=== PATIENT | female | born 1945 | race Caucasian/White ===

== ENCOUNTER 2019-01-01 15:38 | Emergency (ER) | payer MEDICARE, MEDICAID, SELFPAY ==
[2019-01-01 15:40] VITALS: BP 216/115; PULSE 64; RESP 18; TEMP 36.7; O2SAT 97; BMI 24.0
[2019-01-01 15:51] VITALS: BP 213/109; PULSE 59; RESP 20; O2SAT 99
[2019-01-01] MEDS: Lisinopril 20 MG Tablet PO (16:42)
[2019-01-01 16:43] VITALS: BP 181/87; PULSE 72
--- NOTE | 2019-01-01 16:55 | EKG12_ITS ---
Test Reason : HIGH BLOOD PRESSURE Blood Pressure : / mmHG Vent. Rate : 060 BPM Atrial Rate : 060 BPM P-R Int : 142 ms QRS Dur : 076 ms QT Int : 446 ms P-R-T Axes : 007 -10 018 degrees QTc Int : 446 ms Normal sinus rhythm with sinus arrhythmia Normal ECG Confirmed by SONIA MCELROY MD ([id number]), non linear editor CHRIST SUN ([id number]) on 01/04/2019 9:30:24 AM Referred By: HEIDI
--- NOTE | 2019-01-01 17:09 | ED.DCSUM_ITS ---
- ER Visit Summary Date of Service: 01/01/19 Chief Complaint: [] History of Present Illness: The patient is a 73 F [] Physical Examination: [] Test Results: [] Emergency Department Course and Treatment: [] Treatment Plan: [] Disposition: [] Impression: [] This note was generated with [employer] dictation software. It may contain incorrect words, spelling, and punctuation that were not noted in review of the chart prior to signing ED Disposition - Plan for ED Patient: Referrals: Care Physician,No Primary [Primary Care Provider] -
[2019-01-01 17:12] VITALS: BP 172/82; PULSE 57
--- NOTE | 2019-01-01 17:14 | ED.DEP ---
ED Disposition - Plan for ED Patient: Disposition: Home or Assisted Living Instructions: ED HTN Established Prescriptions: Lisinopril [Zestril] 20 mg PO DAILY #30 tab Referrals: Cornel Alston MD [STAFF PHYSICIAN] - As soon as possible Additional Instructions: Start taking the new blood pressure medication lisinopril 20 mg once a day. This may or may not need to be adjusted. Call and follow-up with Dr. Cornel Alston call their office on Thursday and see if they get you in this week. Check your blood sugars at home.
--- NOTE | 2019-01-01 17:15 | ED.VISSUMM ---
- ER Visit Summary Date of Service: 01/01/19 Chief Complaint: Elevated blood pressure History of Present Illness: The patient is a 73 F who comes in from [facility] health assessment for elevated blood pressure. Patient was not seen by her family physician in 8 years but prior to that she was on 2 different medicines for blood pressure. This was a routine evaluation. Patient denies any symptoms at this time. She has not had any chest pain shortness of breath, lightheadedness or dizziness, headache, nausea or vomiting, difficulty with speech or ambulation, visual changes, numbness tingling or weakness. Physical Examination: Well-nourished well-developed. Patient is in no acute distress. PERRLA, EOMI. No nystagmus. Heart is regular rate and rhythm. Lungs are clear to auscultation bilaterally. Abdomen is tender with normal bowel signs. Neurological exam is nonfocal. No lower extremity edema. No rash noted Test Results: EKG was normal sinus rhythm without any ST segment or T wave changes with normal intervals no ectopy. Emergency Department Course and Treatment: Patient given 20 mg of lisinopril. Blood pressure improved to 172/82. Patient remains asymptomatic. The rest of her vital signs are stable. She will be started on lisinopril and she will follow-up with her family doctor. Treatment Plan: Lisinopril prescription provided Disposition: Discharged home Impression: Uncontrolled hypertension This note was generated with [employer] dictation software. It may contain incorrect words, spelling, and punctuation that were not noted in review of the chart prior to signing ED Disposition - Plan for ED Patient: Referrals: Care Physician,No Primary [Primary Care Provider] -
--- NOTE | 2019-01-01 17:18 | ED.DCSUM_ITS ---
- ER Visit Summary Date of Service: 01/01/19 Chief Complaint: Elevated blood pressure History of Present Illness: The patient is a 73 F who comes in from [facility] health assessment for elevated blood pressure. Patient was not seen by her family physician in 8 years but prior to that she was on 2 different medicines for blood pressure. This was a routine evaluation. Patient denies any symptoms at this time. She has not had any chest pain shortness of breath, lightheadedness or dizziness, headache, nausea or vomiting, difficulty with speech or ambulation, visual changes, numbness tingling or weakness. Physical Examination: Well-nourished well-developed. Patient is in no acute distress. PERRLA, EOMI. No nystagmus. Heart is regular rate and rhythm. Lungs are clear to auscultation bilaterally. Abdomen is tender with normal bowel signs. Neurological exam is nonfocal. No lower extremity edema. No rash noted Test Results: EKG was normal sinus rhythm without any ST segment or T wave changes with normal intervals no ectopy. Emergency Department Course and Treatment: Patient given 20 mg of lisinopril. Blood pressure improved to 172/82. Patient remains asymptomatic. The rest of her vital signs are stable. She will be started on lisinopril and she will follow-up with her family doctor. Treatment Plan: Lisinopril prescription provided Disposition: Discharged home Impression: Uncontrolled hypertension This note was generated with [employer] dictation software. It may contain incorrect words, spelling, and punctuation that were not noted in review of the chart prior to signing ED Disposition - Plan for ED Patient: Referrals: Care Physician,No Primary [Primary Care Provider] -
== END 2019-01-01 17:22 | disposition home or self-care (01) ==
PROVIDERS: Emergency Provider Physician Assistant Medical
DX: I10 Essential (primary) hypertension (principal)
CPT/HCPCS: 93005; 99283

== ENCOUNTER → 2019-04-20 10:30 | Outpatient (CLI) | payer MEDICARE, MEDICAID, SELFPAY ==
[2019-04-20 13:22] LABS: Anion Gap 9 (5-15); BUN 38 mg/dL (7-18); BUN/Creat Ratio 24.7 RATIO (10-20); Calcium,Total 9.4 mg/dL (8.5-10.1); Chloride 106 mmol/L (98-107); Creatinine, Serum 1.54 mg/dL (0.55-1.02); EST Glomerular Filtration Rate 35 mL/min (>60); Est Glom Filt Rate - Afr Amer 42 mL/min (>60); Glucose 106 mg/dL (74-106); Potassium 4.3 mmol/L (3.5-5.1); Sodium Level 139 mmol/L (136-145)
== END ==
PROVIDERS: PCP Family Medicine; Visit Provider Nurse Practitioner Family
DX: I10 Essential (primary) hypertension (principal)
CPT/HCPCS: 36415; 80048

== ENCOUNTER → 2019-05-09 08:15 | Outpatient (CLI) | payer MEDICARE, MEDICAID, SELFPAY ==
[2019-05-09 10:29] LABS: Vitamin D,25 Hydroxy 14.7 ng/mL (29.95-100.01)
[2019-05-09 10:41] LABS: Anion Gap 9 (5-15); BUN 15 mg/dL (7-18); BUN/Creat Ratio 13.5 RATIO (10-20); Chloride 104 mmol/L (98-107); Cholesterol 227 mg/dL (200); Creatinine, Serum 1.11 mg/dL (0.55-1.02); EST Glomerular Filtration Rate 51 mL/min (>60); Est Glom Filt Rate - Afr Amer 62 mL/min (>60); Glucose 127 mg/dL (74-106); High Density Lipoprotein 65 mg/dL; Potassium 3.7 mmol/L (3.5-5.1); Sodium Level 138 mmol/L (136-145); Triglycerides 134 mg/dL; Very Low Density Lipoprotein 27 mg/dL (5-40)
== END ==
PROVIDERS: Family Provider Family Medicine; PCP Family Medicine; Referring Provider Family Medicine; Visit Provider Family Medicine
DX: I10 Essential (primary) hypertension (principal); N28.9 Disorder of kidney and ureter, unspecified
CPT/HCPCS: 36415; 80048; 80061; 82043; 82306; 82570

== ENCOUNTER → 2019-05-10 14:51 | Outpatient (CLI) | payer MEDICARE, MEDICAID, SELFPAY ==
[2019-05-10 18:59] LABS: Microalbumin,Random Urine 15.4 mg/L (NO RANGE EST.); Microalbumin:Creatinine Ratio 20.3 mg/g CRE (<30 mg/g CRE)
== END ==
PROVIDERS: Family Provider Family Medicine; PCP Family Medicine; Referring Provider Family Medicine; Visit Provider Family Medicine
DX: N28.9 Disorder of kidney and ureter, unspecified (principal)
CPT/HCPCS: 82043; 82570

== ENCOUNTER → 2019-05-30 07:45 | Outpatient (CLI) | payer MEDICARE, MEDICAID, SELFPAY ==
--- NOTE | 2019-05-30 07:49 | ECHOD_ITS ---
Reason For Study: MURMUR Procedure This was a 2D Doppler, Color Flow transthoracic echocardiogram. Exam performed in department. Left Ventricle Normal LV size. Left ventricular systolic function is normal. The estimated ejection fraction is 60 %. No regional wall motion abnormalities noted. Right Ventricle Normal RV size. Normal systolic function. Atria Normal left atrium. Normal right atrium. Mitral Valve Normal mitral valve. Mild (1+) eccentric mitral valve insufficiency. Tricuspid Valve Normal tricuspid valve. Mild (1+) tricuspid valve insufficiency. Pulmonary artery systolic pressure is 32 mmHg. Aortic Valve Normal aortic valve. Mild focal aortic valve calcification. Peak aortic valve gradient 13 mmHg. Mean aortic valve gradient 6 mmHg. Mild aortic stenosis. Pulmonic Valve Normal pulmonic valve. Great Vessels Normal aortic root. The pulmonary artery is normal size. Normal inferior vena cava. Pericardium/Pleural No pericardial effusion. MMode/2D Measurements & Calculations LVIDd: 3.6 cm IVSd: 0.94 cm LVOT diam: 2.0 cm LVIDs: 2.3 cm LVPWd: 0.82 cm LVOT area: 3.1 cm2 RVDd: 2.7 cm FS: 35.2 % Ao root diam: 3.1 cm LAV(MOD-bp): 52.1 ml LA A4 area: 17.8 cm2 LAV(MOD-bp) Indexed: 34.7 ml/m2 LAV(MOD-sp2): 52.4 ml LAV(MOD-sp4): 50.4 ml LA dimension(2D): 4.1 cm RA A4 area: 11.2 cm2 Time Measurements MV dec time: 0.22 sec Doppler Measurements & Calculations MV E max miguel a: 75.8 cm/sec Lat Peak E' Miguel A: 9.3 cm/sec Med Peak E' Miguel A: 6.8 cm/sec MV A max miguel a: 100.0 cm/sec E/E' lat: 8.2 E/E' med: 11.2 MV E/A: 0.76 Ao V2 max: 183.2 cm/sec LV V1 max: 109.4 cm/sec SV(LVOT): 82.2 ml Ao max P.4 mmHg LV V1 max P.8 mmHg Ao V2 mean: 119.8 cm/sec LV V1 mean P.0 mmHg Ao mean P.5 mmHg LV V1 mean: 83.1 cm/sec Ao V2 VTI: 37.7 cm LV V1 VTI: 26.9 cm KARI(I,D): 2.2 cm2 KARI(V,D): 1.8 cm2 PA V2 max: 104.0 cm/sec TR max miguel a: 258.9 cm/sec TR max P.8 mmHg Interpretation Summary Normal LV size. Left ventricular systolic function is normal. The estimated ejection fraction is 60 %. Mild (1+) tricuspid valve insufficiency. Mild aortic stenosis. Pulmonary artery systolic pressure is 32 mmHg. Ordering Physician: Rafy Balderas Referring Physician: Rafy Balderas Performed By: Zohreh Burton RDCS, RVT
== END ==
PROVIDERS: Family Provider Family Medicine; PCP Family Medicine; Referring Provider Family Medicine; Visit Provider Family Medicine
DX: R01.1 Cardiac murmur, unspecified (principal)
CPT/HCPCS: 93306

== ENCOUNTER → 2019-09-05 08:17 | Outpatient (CLI) | payer MEDICARE, MEDICAID, SELFPAY ==
[2019-09-05 10:38] LABS: ALB/GLOB Ratio 1.1 RATIO (0.9-2.4); AST(SGOT) 30 U/L (15-37); Alanine Aminotransfer ALT/SGPT 37 U/L (13-56); Albumin, Serum 4.1 g/dL (3.2-5.0); Alkaline Phosphatase 87 U/L (45-117); Anion Gap 6 (5-15); BUN 19 mg/dL (7-18); BUN/Creat Ratio 18.4 RATIO (10-20); Calcium,Total 9.3 mg/dL (8.5-10.1); Chloride 105 mmol/L (98-107); Cholesterol 147 mg/dL (200); Creatinine, Serum 1.03 mg/dL (0.55-1.02); EST Glomerular Filtration Rate 55 mL/min (>60); Est Glom Filt Rate - Afr Amer 67 mL/min (>60); Globulin 3.8 g/dL (2.2-4.2); Glucose 112 mg/dL (74-106); High Density Lipoprotein 82 mg/dL; Potassium 3.8 mmol/L (3.5-5.1); Protein, Total 7.9 g/dL (6.4-8.2); Sodium Level 138 mmol/L (136-145); Triglycerides 82 mg/dL; Very Low Density Lipoprotein 16 mg/dL (5-40)
[2019-09-05 10:40] LABS: Vitamin D,25 Hydroxy 43.5 ng/mL (29.95-100.01)
== END ==
PROVIDERS: PCP Family Medicine; Referring Provider Family Medicine; Visit Provider Family Medicine
DX: I10 Essential (primary) hypertension (principal); E55.9 Vitamin D deficiency, unspecified
CPT/HCPCS: 36415; 80053; 80061; 82306

== ENCOUNTER → 2020-04-12 09:46 | Outpatient (CLI) | payer MEDICARE, MEDICAID, SELFPAY ==
--- NOTE | 2020-04-12 09:58 | BD_ITS ---
STUDY: DUAL ENERGY X-RAY ABSORPTIOMETRY / DXA REASON FOR EXAM: Female, 75 years old. 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 COMPARISON: None. FINDINGS: Lumbar Spine (L1-L4): g/cm2 (0.972) / T-score (-1.7) / Z-score (0.1) Findings are suggestive of osteopenia with a moderate fracture risk. Left Femur Total: g/cm2 (0.717) / T-score (-2.3) / Z-score (-0.5) Left Femoral Neck: g/cm2 (0.662) / T-score (-2.7) / Z-score (-0.7) Right Femur Total: g/cm2 (0.659) / T-score (-2.8) / Z-score (-1.0) Right Femoral Neck: g/cm2 (0.56) / T-score (-3.4) / Z-score (-1.4) BD/Dexa Bone Density Study IMPRESSION: The patient is considered osteoporotic as outlined below according to World Jason Organization (WHO) criteria with a high fracture risk. Reference Information: The T-score is the number of standard deviations above or below the standard which is normal for young adults at their peak bone mineral density. The World Health Organization (WHO) interprets the T-scores as follows: Above -1 Normal bone density Between -1 and -2.5 Osteopenia Equal to / or below -2.5 Osteoporosis As a practical clinical guideline, osteopenia may be graded as follows: Mild -1 through -1.5 Moderate -1.6 through -2.0 Severe -2.1 through -2.4 The Z-score is the number of standard deviations above or below age-matched controls. A Z-score of less than -1.5 would be considered abnormal. References: 1. NIH Osteoporosis and Related Bone Diseases http://www.osteo.org 2. International Society for Clinical Densitometry http://www.iscd.org 3. National Osteoporosis Foundation http://www.nof.org Electronically Signed: Lawrence Barrios, at 10:52 EDT , Service support ,
== END ==
PROVIDERS: PCP Family Medicine; Referring Provider Family Medicine; Visit Provider Family Medicine
DX: M85.80 Other specified disorders of bone density and structure, unspecified site (principal); Z78.0 Asymptomatic menopausal state
CPT/HCPCS: 77080

== ENCOUNTER → 2020-08-16 08:55 | Outpatient (CLI) | payer MEDICARE, MEDICAID, SELFPAY ==
[2020-08-16 10:50] LABS: AST(SGOT) 32 U/L (15-37); Alanine Aminotransfer ALT/SGPT 33 U/L (13-56); Albumin, Serum 3.7 g/dL (3.2-5.0); Alkaline Phosphatase 70 U/L (45-117); Anion Gap 8 (5-15); BUN 20 mg/dL (7-18); BUN/Creat Ratio 21.7 RATIO (10-20); Calcium,Total 8.5 mg/dL (8.5-10.1); Chloride 106 mmol/L (98-107); Cholesterol 129 mg/dL (200); Creatinine, Serum 0.92 mg/dL (0.55-1.02); EST Glomerular Filtration Rate 63 mL/min (>60); Est Glom Filt Rate - Afr Amer 76 mL/min (>60); Globulin 3.7 g/dL (2.2-4.2); Glucose 113 mg/dL (74-106); High Density Lipoprotein 85 mg/dL; Potassium 3.6 mmol/L (3.5-5.1); Protein, Total 7.4 g/dL (6.4-8.2); Sodium Level 138 mmol/L (136-145); Triglycerides 52 mg/dL; Very Low Density Lipoprotein 10 mg/dL (5-40)
[2020-08-16 12:59] LABS: Microalbumin,Random Urine 20.8 mg/L (NO RANGE EST.); Microalbumin:Creatinine Ratio 30.1 mg/g CRE (<30 mg/g CRE)
[2020-08-16 14:04] LABS: Hemoglobin A1c 6.2 % (3.8-5.6)
== END ==
PROVIDERS: PCP Family Medicine; Referring Provider Family Medicine; Visit Provider Family Medicine
DX: E11.9 Type 2 diabetes mellitus without complications (principal)
CPT/HCPCS: 36415; 80053; 80061; 82043; 82570; 83036

== ENCOUNTER 2021-08-12 08:53 | Outpatient (CLI) | payer MEDICARE, MEDICAID, SELFPAY ==
[2021-08-12 10:49] LABS: Hemoglobin A1c 6.2 % (3.8-5.6)
[2021-08-12 10:51] LABS: ALB/GLOB Ratio 0.9 RATIO (0.9-2.4); AST(SGOT) 30 U/L (15-37); Alanine Aminotransfer ALT/SGPT 29 U/L (13-56); Albumin, Serum 3.7 g/dL (3.2-5.0); Alkaline Phosphatase 68 U/L (45-117); Anion Gap 5 (5-15); BUN 17 mg/dL (7-18); BUN/Creat Ratio 18.5 RATIO (10-20); Calcium,Total 8.9 mg/dL (8.5-10.1); Chloride 107 mmol/L (98-107); Cholesterol 132 mg/dL (200); Creatinine, Serum 0.92 mg/dL (0.55-1.02); EST Glomerular Filtration Rate 63 mL/min (>60); Est Glom Filt Rate - Afr Amer 76 mL/min (>60); Glucose 102 mg/dL (74-106); High Density Lipoprotein 76 mg/dL; Potassium 3.8 mmol/L (3.5-5.1); Protein, Total 7.7 g/dL (6.4-8.2); Sodium Level 140 mmol/L (136-145); Triglycerides 99 mg/dL; Very Low Density Lipoprotein 20 mg/dL (5-40)
== END 2021-08-12 23:59 | disposition short-term general hospital (02) ==
LOC: MTLAB 08:56
PROVIDERS: PCP Registered Nurse; Referring Provider Registered Nurse; Visit Provider Registered Nurse
DX: R73.01 Impaired fasting glucose (principal); I10 Essential (primary) hypertension; E78.5 Hyperlipidemia, unspecified
CPT/HCPCS: 36415; 80053; 80061; 83036

== ENCOUNTER 2021-09-14 11:43 | Emergency (ER) | payer MEDICARE, MEDICAID, SELFPAY ==
[2021-09-14 11:44] VITALS: BP 178/85; PULSE 75; RESP 16; TEMP 36.2; O2SAT 100; BMI 23.1
--- NOTE | 2021-09-14 12:01 | EDS_ITS ---
HPI History of Present Illness Chief Complaint: Wound Narrative Narrative: Patient presents from urgent care with right middle fingertip infection. She states she was sent here for an antibiotic. She has a bad habit as she states of picking at her fingertips. Over the last week or longer she has noticed redness and purulent drainage from the tip of her left middle finger. The entire finger has become swollen and darker red with streaking on the back of her hand. She denies any fevers or chills. No nausea or vomiting. No other symptoms. She does state that the purulent drainage has improved. She states that she has never picked the tip of her finger to the point where it has gotten infected this badly. [facility] Medical History (Updated 09/14/21 @ 14:05 by Rashad Junior MD) High cholesterol Hypertension Home Medications alendronate 70 mg PO DAILY 09/14/21 [History Last Taken Unknown] amlodipine 5 mg PO DAILY 09/14/21 [History Last Taken Unknown] amoxicillin-pot clavulanate 1 tab PO BID #20 tab 09/14/21 [Rx Last Taken Unknown] atorvastatin 40 mg PO DAILY 09/14/21 [History Last Taken Unknown] Allergy/AdvReac Type Severity Reaction Status Date / Time No Known Allergies Allergy Verified 01/01/19 15:42 Social History Smoking Status: Never smoker ROS ROS ED ROS Narrative Constitutional: No fever, no chills. HEENT: No sore throat. No neck pain. No loss of vision. No rhinorrhea. Cardiovascular: No chest pain. No palpitations. No pedal edema. Respiratory: No cough, no shortness of breath. Abdominal: No abdominal pain. No nausea. No vomiting. Genitourinary: No dysuria. No hematuria. Musculoskeletal: No myalgias. No arthralgias. Positive swelling of left middle/third digit Neurologic: No headaches. No dizziness. No lightheadedness. Skin: No rash. Darkened red middle finger left hand. Psychiatric: No depression. No anxiety. EXAM Physical Exam Narrative Exam Narrative: Afebrile. Vital signs noted. Nontoxic-appearing. HEENT: Normocephalic. Atraumatic. PERRL, EOMI. Neck soft and supple. No point tenderness or step off. Cardiovascular: Regular rate and rhythm. No murmurs, rubs, or gallops appreciated. Respiratory: No tachypnea. Lungs clear to auscultation bilaterally. Gastrointestinal: Abdomen soft, nontender, with normoactive bowel sounds. No rebound or guarding. Neurological: Awake. Alert. Nonfocal, nonlateralizing. Skin: No rash. Normal color. No pallor. Musculoskeletal: No pedal edema. Full range of motion extremities. She does have circumferential swelling of her left middle digit. The tip does appear reddened. Her entire digit appears darker red in color with lymphangitic streaking on the dorsum of her hand. It is difficult to distinguish if the nailbed is intact/nail is intact because of her previous picking. While she does have circumferential swelling, she has negative pain with passive range of motion and is able to flex and extend her middle digit without difficulty. Const Vital Signs: 09/14/21 11:44 Temperature 97.2 F L Temperature Source Temporal Pulse Rate 75 Respiratory Rate 16 Blood Pressure 178/85 H Blood Pressure Mean 116 Pulse Ox 100 Oxygen Delivery Method Room Air MDM MDM MDM Narrative Medical decision making narrative: Concern is for osteomyelitis and possible bone exposure. I will obtain basic laboratory work including CBC and BMP, and IV will be placed. I will also obtain a x-ray of her left middle digit. Her laboratory work is grossly unremarkable, no elevated white count. X-ray of the third middle digit does not show any evidence of osteomyelitis. Given that she only has mild circumferential swelling but is negative for other [place]ie[place] signs for tenosynovitis, she was given her first dose of Augmentin here in the emergency department and a prescription written for the next 10 days. She will follow-up with her primary care provider in the next 3 to 5 days for a wound check. I reviewed return instructions with her. I feel she can be discharged safely home with follow-up. Disposition is discharged home in stable condition. Lab Data Attestation: I reviewed the patient's lab results. Discharge Plan Triage Chief Complaint: Wound ED Provider: Rashad Junior Dx/Rx/DC Orders Clinical Impression: Cellulitis of finger, left Instructions: ED Cellulitis Prescriptions: New amoxicillin-pot clavulanate 875-125 mg tablet 1 tab PO BID Qty: 20 RF: 0 No Action atorvastatin 40 mg tablet 40 mg PO DAILY RF: 0 alendronate 70 mg tablet 70 mg PO DAILY RF: 0 amlodipine 5 mg tablet 5 mg PO DAILY RF: 0 Primary Care Provider: Dominique Oscar Referrals: Dominique Oscar NP-C [Primary Care Provider] - 3-5 Days Disposition Disposition: Home, Self Care
--- NOTE | 2021-09-14 12:30 | RAD_ITS ---
STUDY: X-RAY - LEFT HAND, ATTENTION 3 FINGER REASON FOR EXAM: Female, 76 years old. Pain and swelling TECHNIQUE: 3 view(s) of the finger were obtained. COMPARISON: None. FINDINGS: Normal metacarpal head. Normal metacarpophalangeal joint. Normal proximal phalanx. Normal middle phalanx. Normal distal phalanx. Normal proximal interphalangeal joint. Normal distal interphalangeal joint. Diffuse soft tissue swelling suggestive of cellulitis. RAD/Finger(s) Min 2 Views IMPRESSION: Suspect cellulitis of the third digit. No radiographic evidence of osteomyelitis. Electronically Signed: Agus Doss MD at 13:13 EST ,
[2021-09-14 13:01] LABS: Absolute Lymphocyte Count 1.79 X10^3/uL (0.83-4.51); Absolute Neutrophil Count 5.2 X10^3/uL (2.0-7.7); Basophil# 0.04 X10^3/uL; Basophil% 0.5 % (0-1); Eosinophil# 0.08 X10^3/uL; Hematocrit 37.5 % (37-47); Hemoglobin 12.7 g/dL (12.0-15.0); Lymphocyte # 1.79 X10^3/ul (0.83-4.51); Lymphocyte % 22.6 % (19-41); Mean Corp Hgb Conc 33.9 g/dL (32-36); Mean Corpuscular Hgb 30.6 pg (27.0-32.0); Mean Corpuscular Volume 90.4 fL (81-99); Mean Platelet Vol. 9.1 fl (6.2-12.0); Monocyte# 0.76 X10^3/uL; Monocyte% 9.6 % (0-10); NRBC Flagged by Analyzer 0 % (0-5); Neutrophil # 5.23 X10^3/uL (2.7-7.7); Platelet Count 420 K/mm3 (150-450); RBC Distribution Width CV 13.2 % (11.6-14.6); Red Blood Count 4.15 M/mm3 (4.2-5.4); White Blood Count 7.9 K/mm3 (4.4-11.0)
[2021-09-14 13:14] LABS: Anion Gap 6 (5-15); BUN 17 mg/dL (7-18); BUN/Creat Ratio 17.8 RATIO (10-20); Calcium,Total 9.6 mg/dL (8.5-10.1); Chloride 107 mmol/L (98-107); Creatinine, Serum 0.96 mg/dL (0.55-1.02); EST Glomerular Filtration Rate 60 mL/min (>60); Est Glom Filt Rate - Afr Amer 73 mL/min (>60); Estimated Creatinine Clearance 39.01 ml/min; Glucose 136 mg/dL (74-106); Sodium Level 138 mmol/L (136-145)
[2021-09-14] MEDS: Amox/Clavulanate 875 MG Tablet PO (14:32)
[2021-09-14 14:38] VITALS: RESP 16
== END 2021-09-14 14:38 | disposition home or self-care (01) ==
PROVIDERS: Emergency Provider Emergency Medicine; PCP Registered Nurse; Visit Provider Emergency Medicine
DX: L03.012 Cellulitis of left finger (principal); I10 Essential (primary) hypertension; E78.00 Pure hypercholesterolemia, unspecified; Z79.899 Other long term (current) drug therapy
CPT/HCPCS: 73140; 80048; 85025; 87040; 99284

== ENCOUNTER 2021-10-01 14:31 | Outpatient (CLI) | payer MEDICARE, MEDICAID, SELFPAY ==
--- NOTE | 2021-10-01 14:40 | RAD_ITS ---
STUDY: X-RAY - LEFT HAND REASON FOR EXAM: Female, 76 years old. CELLULITIS TECHNIQUE: 3 view(s) of the hand. COMPARISON: 09/14/2021 FINDINGS: The bones are diffusely demineralized. Degenerative arthrosis noted all visualized joint spaces. Arthritic changes most pronounced in the PIP and DIP joints. No demonstrated acute fracture, there is an old ununited ulnar styloid fracture. There is soft tissue laceration distal to the distal tip of the third finger. It is difficult to determine but there does appear to be some subtle erosive changes in the distal tuft of the distal phalanx of the third digit. Findings have worsened since the previous study. RAD/Hand Min 3 Views IMPRESSION: Progression of cellulitis in the distal aspect of the third digit since the previous study. I suspect there is now involvement of the distal tuft of the distal phalanx of the third digit. There is also been associated soft tissue erosion since the previous study. 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
[2021-10-01 17:57] LABS: Absolute Lymphocyte Count 2.03 X10^3/uL (0.83-4.51); Absolute Neutrophil Count 6.5 X10^3/uL (2.0-7.7); Basophil# 0.05 X10^3/uL; Basophil% 0.5 % (0-1); Hematocrit 38.2 % (37-47); Hemoglobin 12.4 g/dL (12.0-15.0); Lymphocyte # 2.03 X10^3/ul (0.83-4.51); Lymphocyte % 21.2 % (19-41); Mean Corp Hgb Conc 32.5 g/dL (32-36); Mean Corpuscular Hgb 29.6 pg (27.0-32.0); Mean Corpuscular Volume 91.2 fL (81-99); Mean Platelet Vol. 9.7 fl (6.2-12.0); Monocyte# 0.84 X10^3/uL; Monocyte% 8.8 % (0-10); NRBC Flagged by Analyzer 0 % (0-5); Neutrophil # 6.54 X10^3/uL (2.7-7.7); Neutrophil % 68.2 % (47-70); Platelet Count 449 K/mm3 (150-450); RBC Distribution Width CV 13.2 % (11.6-14.6); RBC Distribution Width SD 44.9 fl (35.1-43.9); Red Blood Count 4.19 M/mm3 (4.2-5.4); White Blood Count 9.6 K/mm3 (4.4-11.0)
[2021-10-01 18:15] LABS: ALB/GLOB Ratio 0.9 RATIO (0.9-2.4); AST(SGOT) 35 U/L (15-37); Alanine Aminotransfer ALT/SGPT 33 U/L (13-56); Alkaline Phosphatase 83 U/L (45-117); Anion Gap 4 (5-15); BUN 18 mg/dL (7-18); BUN/Creat Ratio 19.2 RATIO (10-20); Calcium,Total 9.4 mg/dL (8.5-10.1); Chloride 104 mmol/L (98-107); Creatinine, Serum 0.94 mg/dL (0.55-1.02); EST Glomerular Filtration Rate 61 mL/min (>60); Est Glom Filt Rate - Afr Amer 74 mL/min (>60); Globulin 4.5 g/dL (2.2-4.2); Glucose 94 mg/dL (74-106); Potassium 3.9 mmol/L (3.5-5.1); Protein, Total 8.5 g/dL (6.4-8.2); Sodium Level 137 mmol/L (136-145)
== END 2021-10-01 23:59 | disposition home or self-care (01) ==
PROVIDERS: PCP Registered Nurse; Referring Provider Registered Nurse; Visit Provider Registered Nurse
DX: L03.012 Cellulitis of left finger (principal)
CPT/HCPCS: 36415; 73130; 80053; 85025; 87070; 87205

== ENCOUNTER 2021-10-01 18:06 | Inpatient (IN) | payer MEDICARE, MEDICAID, SELFPAY ==
[2021-10-01 18:07] VITALS: BP 167/125; PULSE 89; RESP 18; TEMP 36.2; O2SAT 98; BMI 22.4
[2021-10-01 18:16] VITALS: BP 134/74; PULSE 75; TEMP 37.2; O2SAT 97
[2021-10-01 19:04] LABS: Absolute Lymphocyte Count 2.11 X10^3/uL (0.83-4.51); Absolute Neutrophil Count 6.1 X10^3/uL (2.0-7.7); Basophil# 0.04 X10^3/uL; Basophil% 0.4 % (0-1); Eosinophil# 0.14 X10^3/uL; Eosinophils% 1.5 % (0-5); Hematocrit 35.6 % (37-47); Hemoglobin 11.4 g/dL (12.0-15.0); Lymphocyte # 2.11 X10^3/ul (0.83-4.51); Lymphocyte % 22.6 % (19-41); Mean Corpuscular Hgb 29.2 pg (27.0-32.0); Mean Corpuscular Volume 91.3 fL (81-99); Mean Platelet Vol. 9.2 fl (6.2-12.0); Monocyte% 9.7 % (0-10); NRBC Flagged by Analyzer 0 % (0-5); Neutrophil # 6.11 X10^3/uL (2.7-7.7); Neutrophil % 65.6 % (47-70); Platelet Count 399 K/mm3 (150-450); RBC Distribution Width CV 13.3 % (11.6-14.6); RBC Distribution Width SD 44.7 fl (35.1-43.9); White Blood Count 9.3 K/mm3 (4.4-11.0)
--- NOTE | 2021-10-01 19:14 | EX.ED.DYSGE1 ---
HPI History of Present Illness Chief Complaint: Cellulitis Detail of Chief Complaint: Cellulitis and abscess left long finger Informant: patient, spouse/S.O. and PCP Onset/Context/Timing Onset: Weeks (Patient seen September 14 for cellulitis and placed on Augmentin.) Context: Gradual Onset Timing: Continuous Quality: Swollen painful left long finger with purulent drainage Location: Left long finger over the middle and distal phalanx with lymphangitis to th Current Severity: Moderate Maximum Severity: Moderate Worsened by: Nothing Relieved by: Nothing Associated Symptoms Associated Symptoms: No constitutional symptoms Narrative Narrative: Patient is a 76-year-old [id number] woman who was initially prescribed Augmentin and is presently on Bactrim. She was sent to the ER because of failed outpatient therapy. Patient Benito localizes pain over the DIP joint of the left long finger. There is erythema of the finger with lymphangitis and pain to palpation. There is no pain the patient over the flexor tendon especially in the palm. There is no nail noted. Palpation of the area erythema results in thick green purulent material noted from the middle portion of the nailbed. She denies fever, chills night sweats. She is on no immunosuppressive meds. She has no history rheumatic fever. She is not diabetic. Prior similar symptoms: Yes Recent Illness/Hospitalization: Yes [facility] Medical History High cholesterol Hypertension Home Medications alendronate 70 mg PO QWEEK 09/14/21 [History Last Taken Unknown] amlodipine 5 mg PO DAILY 09/14/21 [History Last Taken Unknown] amoxicillin-pot clavulanate 1 tab PO BID #20 tab 09/14/21 [Rx Last Taken Unknown] atorvastatin 40 mg PO DAILY 09/14/21 [History Last Taken Unknown] Bactrim DS 1 tab PO/SL BID 10/01/21 [History Last Taken Unknown] Vitamin D (with calcium) 5,000 units PO/SL DAILY 10/01/21 [History Last Taken Unknown] Allergy/AdvReac Type Severity Reaction Status Date / Time No Known Allergies Allergy Verified 10/01/21 18:08 Surgical History H/O: hysterectomy Social History (Updated 10/01/21 @ 19:[address] Jason To MD) household members: spouse Smoking Status: Never smoker substance use type: does not use ROS ROS ED Constitutional Constitutional ED: Denies chills, fever(s), subjective, sweats or weight loss Eyes Eyes: Denies blurry vision or change in vision ENT ENT ED: Denies rhinorrhea or sore throat Cardiovascular Cardiovascular: Denies chest pain or palpitations Respiratory/Chest Respiratory/Chest: Denies cough, dyspnea or dyspnea on exertion Gastrointestinal Gastrointestinal: Denies abdominal pain, diarrhea, nausea or vomiting Musculoskeletal Musculoskeletal: Denies arthralgias, myalgias or neck pain Integumentary Reports abscess; Denies rash Neurologic Neurologic: Denies paresthesias or weakness Endocrine Endocrinology: Denies polydipsia, polyphagia or polyuria Hematologic/Lymphatic Hematologic/Lymphatic: Denies anemia, easy bleeding, easy bruising or lymphadenopathy EXAM Physical Exam Const Vital Signs: 10/01/21 18:07 10/01/21 18:16 10/01/21 20:13 Temperature 97.2 F L 98.9 F 98.1 F Temperature Source Temporal Temporal Temporal Pulse Rate 89 75 63 Respiratory Rate 18 14 Blood Pressure 167/125 H 134/74 H 139/68 H Blood Pressure Mean 139 94 91 Pulse Ox 98 97 98 Oxygen Delivery Method Room Air Room Air Room Air Positive well nourished and well developed General Appearance ED: well developed and NAD; Negative for cyanotic, diaphoretic or pallor HEENT Reports moist mucous membranes Negative for trauma or tenderness Eyes PERRL and EOMs intact bilaterally General Eye ED: Negative for pale conjunctiva or scleral icterus Neck no lymphadenopathy, supple and no JVD Resp normal respiratory effort and clear to auscultation bilaterally Cardio regular rate, regular rhythm, S1 normal heart sound, S2 normal heart sound and no murmurs Back/Spine no CVA tenderness Cervical Spine: Negative for cervical spine tenderness Thoracic Spine / Upper Back: Negative for thoracic spinal tenderness Extremity Negative for normal to inspection Extremity Narrative: There is swelling of the distal portion left long finger. There is cellulitis predominately on the dorsal side with lymphangitis. There is no evidence of a flexor tenosynovitis. There is no epitrochlear lymphadenopathy. There is purulent drainage noted from the mid portion of the nailbed. Culture was obtained. General Extremety ED: Negative for edema or tenderness General Extremity: Negative for edema Neuro oriented x3, CN's II-XII intact bilaterally and no sensory deficits noted Sensorium / Orientation: alert Motor Exam: strength 5/5 throughout Psych mental status grossly normal Skin No no wounds General Skin Exam: Negative for jaundice or pallor MDM MDM MDM Narrative Medical decision making narrative: Patient presents because of failed outpatient therapy. X-ray was obtained to assess for osteomyelitis as well as ESR, CRP, CBC and electrolyte panel. Patient is present on appropriate biotics Augmentin and Bactrim DS. Dr. Shakeel Erwin was paged twice. There is been no response. Spoke with the hospitalist. Hospitalist will admit with consult to Dr. Rosa since he is on-call. Lab Data Attestation: I reviewed the patient's lab results. Lab results narrative: White count and differential normal. Basic metabolic panel unremarkable. Lactate normal. C-reactive protein normal. ESR is elevated however is within normal limits once corrected for age. Glucose is elevated has been elevated on prior. Suspect patient has borderline diabetes. Labs: Laboratory Results - last 24 hr 10/01/21 10/01/21 10/01/21 18:46 18:46 18:46 WBC 9.3 RBC 3.90 L Hgb 11.4 L Hct 35.6 L MCV 91.3 MCH 29.2 MCHC 32.0 RDW Std Deviation 44.7 H RDW Coeff of Abdulaziz 13.3 Plt Count 399 MPV 9.2 Immature Gran % (Auto) 0.200 Neut % (Auto) 65.6 Lymph % (Auto) 22.6 [place] % (Auto) 9.7 Eos % (Auto) 1.5 Baso % (Auto) 0.4 Absolute Neuts (auto) 6.1 Absolute Lymphs (auto) 2.11 Nucleated RBC % 0 ESR 41 H Sodium 137 Potassium 3.5 Chloride 106 Carbon Dioxide 25.0 Anion Gap 6 BUN 17 Creatinine 0.98 Estim Creat Clear Calc 34.53 Est GFR (MDRD) Af Amer 71 Est GFR (MDRD) Non-Af 58 L BUN/Creatinine Ratio 17.3 Glucose 142 H Lactic Acid 1.1 Calcium 9.3 C-React Prot Ext Range < 2.90 Radiography Chest X-Ray - ED: Read by ED Physician (3 views of the left long finger were obtained. On the lateral view there is a small fragment noted off the condyle of the middle phalanx. This may represent osteomyelitis.) Diagnostic Testing: Clinical Impression(s) from Imaging Studies Finger X-Ray 10/01/21 19:15 IMPRESSION: Findings consistent with acute osteomyelitis of the distal phalanx of the middle finger Electronically Signed: Gagandeep Vernon MD at 20:21 EDT Reading Location ID and State: [address] [place] [address] , Service support , Discharge Plan Triage Chief Complaint: Cellulitis ED Provider: Jason To Dx/Rx/DC Orders Clinical Impression: Osteomyelitis of finger of left hand, Cellulitis and abscess of finger, unspecified, Hyperglycemia Prescriptions: No Action atorvastatin 40 mg tablet 40 mg PO DAILY RF: 0 alendronate 70 mg tablet 70 mg PO QWEEK RF: 0 amlodipine 5 mg tablet 5 mg PO DAILY RF: 0 amoxicillin-pot clavulanate 875-125 mg tablet 1 tab PO BID Qty: 20 RF: 0 Vitamin D (with calcium) 5,000 units PO/SL DAILY RF: 0 Bactrim DS 1 tab PO/SL BID RF: 0 Primary Care Provider: Dominique Oscar NP Referrals: Dominique Oscar NP, ENERGY SPECIALIST-C [Primary Care Provider] - Disposition Disposition: Acute Care Hospital [facility]
--- NOTE | 2021-10-01 19:15 | RAD_ITS ---
STUDY: X-RAY - LEFT HAND, ATTENTION MIDDLE FINGER REASON FOR EXAM: Female, 76 years old. Injury/Pain -- Infection x2-week evaluate osteodistal and middle TECHNIQUE: 3 view(s) of the finger were obtained. COMPARISON: None. FINDINGS: Normal metacarpal head. Normal metacarpophalangeal joint. Normal proximal phalanx. Normal middle phalanx. Subchondral lucency of the distal phalangeal consistent with changes of acute osteomyelitis and diffuse soft tissue swelling. Normal proximal interphalangeal joint. Normal distal interphalangeal joint. RAD/Finger(s) Min 2 Views IMPRESSION: Findings consistent with acute osteomyelitis of the distal phalanx of the middle finger Electronically Signed: Gagandeep Vernon MD at 20:21 EDT ,
[2021-10-01 19:16] LABS: Erythrocyte Sedimentation Rate 41 mm/hr (0-30)
[2021-10-01 19:22] LABS: Anion Gap 6 (5-15); BUN 17 mg/dL (7-18); BUN/Creat Ratio 17.3 RATIO (10-20); CRP < 2.90 mg/L (0.0-3.0); Calcium,Total 9.3 mg/dL (8.5-10.1); Chloride 106 mmol/L (98-107); Creatinine, Serum 0.98 mg/dL (0.55-1.02); EST Glomerular Filtration Rate 58 mL/min (>60); Est Glom Filt Rate - Afr Amer 71 mL/min (>60); Estimated Creatinine Clearance 34.53 ml/min; Glucose 142 mg/dL (74-106); Potassium 3.5 mmol/L (3.5-5.1); Sodium Level 137 mmol/L (136-145)
[2021-10-01 19:24] LABS: Lactic Acid 1.1 mmol/L (0.4-1.9)
[2021-10-01 20:13] VITALS: BP 139/68; PULSE 63; RESP 14; TEMP 36.7; O2SAT 98
--- NOTE | 2021-10-01 20:33 | PCM.HP.STD ---
[facility] - General General Date of Admission: 10/01/21 Date of Service: 10/01/21 Chief Complaint: swelling of left middle finger HPI Narrative VIKASH VIGIL, is a 76 F with a significant history of hyperlipidemia and hypertension who presents to the emergency department with a 1 month history of swelling of her left middle finger. Associated for symptoms is erythema of the same finger. She denies extreme pain in the left middle finger but complained that it is sore. She was placed on antibiotics around September 14, 2021. With antibiotics she had improvement in her symptoms. However her symptoms recurred. On the same day of presentation she saw her PCP. She had imaging and a new antibiotic started. Later on in the day her PCP called her to come to the emergency department. [facility] Medical History High cholesterol Hypertension Home Medications alendronate 70 mg PO QWEEK 09/14/21 [History Last Taken Unknown] amlodipine 5 mg PO DAILY 09/14/21 [History Last Taken Unknown] amoxicillin-pot clavulanate 1 tab PO BID #20 tab 09/14/21 [Rx Last Taken Unknown] atorvastatin 40 mg PO DAILY 09/14/21 [History Last Taken Unknown] Bactrim DS 1 tab PO/SL BID 10/01/21 [History Last Taken Unknown] Vitamin D (with calcium) 5,000 units PO/SL DAILY 10/01/21 [History Last Taken Unknown] Allergy/AdvReac Type Severity Reaction Status Date / Time No Known Allergies Allergy Verified 10/01/21 18:08 Family History (Updated 10/01/21 @ 21:[address] Kush Alcantara MD) Other CAD (coronary artery disease) Heart disease Surgical History H/O: hysterectomy Social History (Updated 10/01/21 @ 19:[address] Jason To MD) household members: spouse Smoking Status: Never smoker substance use type: does not use ROS ROS Narrative Constitutional: Denies fever, chills, fatigue, anorexia and change in weight Eyes: Denies blurry vision, change in eye color, change in vision, discharge from eye(s), double vision, erythema, eye pain, loss of vision or other HEENT: Denies abnormal hearing, dysphagia, ear pain, epistaxis, headache(s), hearing loss, nasal congestion, nasal discharge, post nasal drip, sinus pressure, sore throat or other Cardiovascular: Denies chest pain or palpitations. Denies dyspnea on exertion, orthopnea and paroxysmal nocturnal dyspnea Respiratory/Chest: Denies cough, excessive phlegm production, shortness of breath with exertion and wheezing Gastrointestinal: Denies abdominal pain, coffee ground emesis, constipation, diarrhea, dyspepsia, hematemesis, hematochezia, loose stools, melena, nausea, vomiting or other Genitourinary: Denies burning urination, difficulty urinating, dysuria, hematuria, nocturia, urinary frequency, urinary hesitancy, urinary incontinence, urinary urgency or other Musculoskeletal: Swelling of left middle finger. Erythema of left middle finger. Neurologic: Denies abnormal gait, abnormal speech, confusion, disequilibrium, dizziness, focal weakness, headache(s), numbness, paresthesias, seizure-like activity, seizures, syncope, tingling, tremor(s) or other Psychiatric: Denies anxiety, depression, homicidal ideation, suicidal ideation or other Endocrinology: Denies change in body appearance, cold intolerance, excessive sweating, heat intolerance, polydipsia, polyuria or other Hematologic/Lymphatic: Denies anemia, easy bleeding, easy bruising, lymphadenopathy or other Integumentary: Denies rashes Allergic/Immunologic: Denies rhinitis, hives, eczema, asthma or other Vital Signs Vital Signs Vital Signs: 10/01/21 18:07 10/01/21 18:16 10/01/21 20:13 Temperature 97.2 F L 98.9 F 98.1 F Temperature Source Temporal Temporal Temporal Pulse Rate 89 75 63 Respiratory Rate 18 14 Blood Pressure 167/125 H 134/74 H 139/68 H Blood Pressure Mean 139 94 91 Pulse Ox 98 97 98 Oxygen Delivery Method Room Air Room Air Room Air Weight Weight: 52.163 kg Body Mass Index (BMI) 22.4 Physical Exam Narrative Physical exam: General: Well-nourished, well-developed. Head: Normocephalic, atraumatic, no tenderness Eyes: PERRLA, EOMI ENT, no trauma, moist mucous membranes, no rhinorrhea Neck: Nontender, full range of motion, no spinal tenderness, deformities, step-off CVS: Regular rate and rhythm. S1-S2 present. No murmur, gallop or rub. Respiratory : clear to auscultation bilaterally, chest wall nontender, no wheezing Abdomen: Soft, nontender, nondistended, normal bowel sounds, no masses : Deferred Back: Nontender, no CVA tenderness, no midline spinal tenderness, deformities, step-offs Extremities: Swelling and mild erythema of left middle finger. Tenderness of left middle finger. Pus from the distal phalanx of left middle finger. Slight pitting edema of right foot. Skin: Normal color, no trauma, abrasions Neuro: Alert, oriented, cranial nerves II through XII grossly intact. Psychiatry: Normal mood. Normal affect. Not depressed. Not anxious. Results Lab / Micro Data Result Diagrams: 10/01/21 18:46 10/01/21 18:46 Labs: Laboratory Results - last 24 hr 10/01/21 18:46: WBC 9.3, RBC 3.90 L, Hgb 11.4 L, Hct 35.6 L, MCV 91.3, MCH 29.2, MCHC 32.0, RDW Std Deviation 44.7 H, RDW Coeff of Abdulaziz 13.3, Plt Count 399, MPV 9.2, Immature Gran % (Auto) 0.200, Neut % (Auto) 65.6, Lymph % (Auto) 22.6, [place] % (Auto) 9.7, Eos % (Auto) 1.5, Baso % (Auto) 0.4, Absolute Neuts (auto) 6.1, Absolute Lymphs (auto) 2.11, Nucleated RBC % 0, ESR 41 H 10/01/21 18:46: Sodium 137, Potassium 3.5, Chloride 106, Carbon Dioxide 25.0, Anion Gap 6, BUN 17, Creatinine 0.98, Estim Creat Clear Calc 34.53, Est GFR (MDRD) Af Amer 71, Est GFR (MDRD) Non-Af 58 L, BUN/Creatinine Ratio 17.3, Glucose 142 H, Calcium 9.3, C-React Prot Ext Range < 2.90 10/01/21 18:46: Lactic Acid 1.1 Radiology Impression Finger X-Ray 10/01/21 19:15 IMPRESSION: Findings consistent with acute osteomyelitis of the distal phalanx of the middle finger Electronically Signed: Gagandeep Vernon MD at 20:21 EDT , Assessment & Plan Assessment/Plan (1) Cellulitis and abscess of finger, unspecified: (2) Osteomyelitis of finger of left hand: PLAN: Osteomyelitis/cellulitis and abscess of left middle finger. Failed outpatient antibiotics. Finger x-ray image was visualized and independently interpreted. I agree with radiologist interpretation of acute osteomyelitis of the distal phalanx of the middle finger. Hand x-ray obtained outpatient and before presentation showed progression of cellulitis of distal aspect of the third digit since previous study. Started on vancomycin and Unasyn at the emergency department and continued. Culture of pus obtained at the emergency department, follow. Review of CBC showed normal white count. ESR presentation was elevated at 41. CRP is less than 2.9. Tylenol PRN for pain. Emergency doctor discussed the case with Dr. Rosa plastic surgeon. Inpatient consult to Dr. Rosa Hypertension Blood pressure is not within goal. Home blood pressure medication continued. Trend blood pressure and adjust blood pressure medications. DVT prophylaxis SCD ordered. Charges/Coding Visit Charges Inpatient E&M: 50513 Init Hosp L3
[2021-10-01 20:55] VITALS: BP 150/94; PULSE 67; RESP 14; TEMP 36.6; O2SAT 99
--- NOTE | 2021-10-01 21:12 | CM.ED ---
RN CM Assessment Introduced role of RN CM to patient and her , Ever at bedside.? Patient is alert, oriented and able?to participate in RN CM Assessment. ?Care providers, pharmacy, and demographics verified. Admit Dx: IP for Cellulitis Re-Admit: No. Seen in ER 09/14/21 for same and finished course of Augmentin, currently on Bactrim with worsening of Left middle finger redness. Seen by PCP today. Barriers/Issues: None PCP: Dominique Oscar-[employer] Specialists: None Preferred Pharmacy: [facility] Insurance: [employer] A/B, [facility] Rx Benefit:?Yes LNOK: Ever [place] LW/HPOA: States has a LW completed and HPOA is dtr Jina Medeiros. Aware not on file with [facility]. Living Arrangements:? Lives with in a gnd level apartment, No steps to enter home. ADL?s: Independent with ambulation and ADLs Transportation: Both patient and her drive. DME: None HHC: None SNF: None Goal: Home and denies any needs, issues or concerns with going home at [place]. DC PLAN: Home and no anticipated RNCM needs identified at this time. LAUREN Arreaga
[2021-10-01 21:23] VITALS: BMI 21.6
[2021-10-01 21:53] VITALS: BP 141/80; PULSE 66; RESP 18; TEMP 36.8; O2SAT 99
--- NOTE | 2021-10-01 22:24 | PCM.RX.CS ---
Consult Pharmacy has been consulted to manage selected antiobiotic: Vancomycin Type of Consult: New start Suspected Infection: Skin/Soft tissue Labs: Sodium 137 mmol/L (136-145) 10/01/21 18:46 Potassium 3.5 mmol/L (3.5-5.1) 10/01/21 18:46 Chloride 106 mmol/L (98-107) 10/01/21 18:46 Carbon Dioxide 25.0 mmol/L (21.0-32.0) 10/01/21 18:46 Anion Gap 6 (5-15) 10/01/21 18:46 BUN 17 mg/dL (7-18) 10/01/21 18:46 Creatinine 0.98 mg/dL (0.55-1.02) 10/01/21 18:46 Est GFR (MDRD) Af Amer 71 mL/min (>60) 10/01/21 18:46 Est GFR (MDRD) Non-Af 58 mL/min (>60) L 10/01/21 18:46 BUN/Creatinine Ratio 17.3 RATIO (10-20) 10/01/21 18:46 Glucose 142 mg/dL (74-106) H 10/01/21 18:46 Weight used for dosin.9 kg Estimated Creatinine Clearance: 34.5 Goal Trough: 15-20 mcg/mL Pharmacy Plan for Drug Dosing: Pharmacy Service will continue to monitor and adjust dosing as required. Medications Vancomycin HCl 750 mg/ Sodium (Chloride) 265 mls @ 250 mls/hr IV Q24H ADRIEN Discontinued Medications Vancomycin HCl 1,250 mg/ (Sodium Chloride) 275 mls @ 167 mls/hr IV X1 ONE Stop: 10/01/21 21:06 Last Admin: 10/01/21 21:02 Dose: 167 mls/hr Documented by: Follow-Up Labs: Trough Vancomycin Labs to be done on [date and time ordered]: 10/03 @ 2030
[2021-10-02 02:44] VITALS: BP 141/70; PULSE 64; RESP 18; TEMP 36.5; O2SAT 98
[2021-10-02 04:48] LABS: Absolute Lymphocyte Count 1.44 X10^3/uL (0.83-4.51); Absolute Neutrophil Count 5.3 X10^3/uL (2.0-7.7); Basophil# 0.05 X10^3/uL; Basophil% 0.6 % (0-1); Eosinophil# 0.21 X10^3/uL; Eosinophils% 2.6 % (0-5); Hematocrit 31.8 % (37-47); Hemoglobin 10.7 g/dL (12.0-15.0); Lymphocyte # 1.44 X10^3/ul (0.83-4.51); Mean Corp Hgb Conc 33.6 g/dL (32-36); Mean Corpuscular Hgb 29.8 pg (27.0-32.0); Mean Corpuscular Volume 88.6 fL (81-99); Mean Platelet Vol. 9.3 fl (6.2-12.0); Monocyte# 0.96 X10^3/uL; NRBC Flagged by Analyzer 0 % (0-5); Neutrophil # 5.31 X10^3/uL (2.7-7.7); Neutrophil % 66.5 % (47-70); Platelet Count 339 K/mm3 (150-450); RBC Distribution Width CV 13.4 % (11.6-14.6); RBC Distribution Width SD 43.7 fl (35.1-43.9); Red Blood Count 3.59 M/mm3 (4.2-5.4)
[2021-10-02 05:02] LABS: Anion Gap 5 (5-15); BUN 15 mg/dL (7-18); BUN/Creat Ratio 17.8 RATIO (10-20); Calcium,Total 8.2 mg/dL (8.5-10.1); Chloride 110 mmol/L (98-107); Creatinine, Serum 0.84 mg/dL (0.55-1.02); EST Glomerular Filtration Rate 69 mL/min (>60); Est Glom Filt Rate - Afr Amer 84 mL/min (>60); Glucose 97 mg/dL (74-106); Potassium 3.7 mmol/L (3.5-5.1); Sodium Level 140 mmol/L (136-145)
--- NOTE | 2021-10-02 06:45 | NURSING ---
this RN attempted to contact Shelley to notify of consult. was unable to reach him. will try again later
--- NOTE | 2021-10-02 07:19 | NURSING ---
second attempt to contact Dr. Rosa at this time. went straight to voicemail. left a voicemail stating attempt to notify of a consult and left a number to call back. no pt information was given over the voicemail. Shelby Montenegro RN notified.
[2021-10-02 08:02] VITALS: BP 133/57; PULSE 62; RESP 18; TEMP 36.2; O2SAT 100
[2021-10-02 09:38] VITALS: O2SAT 96
[2021-10-02] MEDS: Cholecalciferol (VIT D3) 25 MCG TABLET (1,000 UNITS) 125 MCG PO (09:47)
[2021-10-02] MEDS: amLODIPine 5 MG Tablet PO (09:47)
--- NOTE | 2021-10-02 10:30 | PCM.PN.HOSP ---
Subjective Subjective Notes that she picks her fingers out of habit. And then was on antibiotics but her finger continue to get worse. Patient has deformity to her right index and long finger where there shortened as compared to the left. She denies a history of scleroderma and denies a history of Raynaud's phenomenon. Objective Data Objective Data Vital Signs: Vital Signs Temp Pulse Resp BP Pulse Ox 36.2 C L 62 18 133/57 H 96 10/02/21 08:02 10/02/21 08:02 10/02/21 08:02 10/02/21 08:02 10/02/21 09:38 Oxygen Delivery Method Room Air Weight: 49.924 kg Body Mass Index (BMI) 21.6 Intake & Output: Intake and Output for Last 24 Hours 09/30/21 10/01/21 10/02/21 23:59 23:59 23:59 Intake Total 387 / 387 224 / 224 Balance 387 / 387 224 / 224 Lab / Micro Data Result Diagrams: 10/02/21 04:23 10/02/21 04:23 Labs: Laboratory Results - last 24 hr 10/01/21 18:46: WBC 9.3, RBC 3.90 L, Hgb 11.4 L, Hct 35.6 L, MCV 91.3, MCH 29.2, MCHC 32.0, RDW Std Deviation 44.7 H, RDW Coeff of Abdulaziz 13.3, Plt Count 399, MPV 9.2, Immature Gran % (Auto) 0.200, Neut % (Auto) 65.6, Lymph % (Auto) 22.6, [place] % (Auto) 9.7, Eos % (Auto) 1.5, Baso % (Auto) 0.4, Absolute Neuts (auto) 6.1, Absolute Lymphs (auto) 2.11, Nucleated RBC % 0, ESR 41 H 10/01/21 18:46: Sodium 137, Potassium 3.5, Chloride 106, Carbon Dioxide 25.0, Anion Gap 6, BUN 17, Creatinine 0.98, Estim Creat Clear Calc 34.53, Est GFR (MDRD) Af Amer 71, Est GFR (MDRD) Non-Af 58 L, BUN/Creatinine Ratio 17.3, Glucose 142 H, Calcium 9.3, C-React Prot Ext Range < 2.90 10/01/21 18:46: Lactic Acid 1.1 03/16/22 04:23: WBC 8.0, RBC 3.59 L, Hgb 10.7 L, Hct 31.8 L, MCV 88.6, MCH 29.8, MCHC 33.6, RDW Std Deviation 43.7, RDW Coeff of Abdulaziz 13.4, Plt Count 339, MPV 9.3, Immature Gran % (Auto) 0.300, Neut % (Auto) 66.5, Lymph % (Auto) 18.0 L, [place] % (Auto) 12.0 H, Eos % (Auto) 2.6, Baso % (Auto) 0.6, Absolute Neuts (auto) 5.3, Absolute Lymphs (auto) 1.44, Nucleated RBC % 0 10/02/21 04:23: Sodium 140, Potassium 3.7, Chloride 110 H, Carbon Dioxide 25.0, Anion Gap 5, BUN 15, Creatinine 0.84, Estim Creat Clear Calc 44.20, Est GFR (MDRD) Af Amer 84, Est GFR (MDRD) Non-Af 69, BUN/Creatinine Ratio 17.8, Glucose 97, Calcium 8.2 L Radiography Diagnostic Testing: Radiology Impression Finger X-Ray 10/01/21 19:15 IMPRESSION: Findings consistent with acute osteomyelitis of the distal phalanx of the middle finger Electronically Signed: Gagandeep Vernon MD at 20:21 EDT Reading Location ID and State: [address] [place] [address] , Service support , Physical Exam Const alert and no apparent distress HEENT Head and Scalp: normocephalic Extremity Extremity Narrative: Deformed distal digits on the right index and long finger where the DIP is much shortened compared to the corresponding fingers and patient has extremely small fingernails on those digits. On her left long finger, patient has marked swelling and deformity of the distal end of that digit with an open wound with purulent serosanguineous fluid. Skin Skin Narrative: lymphangitis on dorsum of left hand Neuro Sensorium / Orientation: awake and alert Assessment & Plan Assessment/Plan (1) Cellulitis and abscess of finger, unspecified: (2) Osteomyelitis of finger of left hand: PLAN: 1. Osteomyelitis/cellulitis and abscess of left middle finger. Failed outpatient antibiotics. Culture of pus obtained at the emergency department, follow. PRS on consult I am concerned the patient may have scleroderma with her digits or least Raynaud's but patient does not have any other clinical findings typically seen. She denies a history of Raynaud's. But if patient has poor vascular supply that may be complicating issue in regards to her cellulitis and osteomyelitis. For this I will order an KEYONNA but would recommend patient follow-up with rheumatology for additional follow-up and studies. 2. Hypertension Blood pressure is not within goal. Home blood pressure medication continued. Trend blood pressure and adjust blood pressure medications. Kidney functions normal and no acute kidney injury and certainly not a scleroderma renal crisis. But consider RAJWINDER inhibitor if blood pressure becomes more difficult to control despite amlodipine. 3. DVT prophylaxis SCD ordered. Charges/Coding Visit Charges Inpatient E&M: 32651 Subs Hosp L2
[2021-10-02 14:10] VITALS: BP 125/59; PULSE 58; RESP 18; TEMP 36.4; O2SAT 97
[2021-10-02 21:10] VITALS: BP 129/77; PULSE 66; RESP 16; TEMP 36.6; O2SAT 95
[2021-10-02] MEDS: Atorvastatin Calcium 40 MG Tablet PO (21:30)
--- NOTE | 2021-10-02 22:23 | PCM.CONS.GEN ---
Assessment & Plan Assessment/Plan (1) Abscess of left middle finger: (2) Cellulitis of left middle finger: (3) Acute osteomyelitis of left hand including fingers: (4) Open bite of left middle finger with damage to nail: PLAN: X-ray reviewed. It shows acute osteomyelitis. Medical records reviewed. Patient has an infection left long finger involving the nail complex with an abscess ulcer. The infection probably started from picking her nails and biting her nails. Wound cultures were taken. She was started on Vancomycin and Unasyn and will continue them. Recommend operative intervention with surgical preparation left long finger tip with incision and drainage and excisional debridement infected ulcer abscess involving nail bed complex. I suspect the ulcer tracks down to the bone so a partial ostectomy distal phalanx for osteomyelitis will be done. The wound will be left open and wound care started with Silver dressing changes. Once the infection has been treated and the surrounding inflammation has subsided, can then proceed with a revision amputation. Depending on the quality of the skin flaps, the level of amputation may be into the middle phalanx. Surgery will be done under local anesthesia digital metacarpal block and IV sedation. Soft tissue and bone will be sent to Pathology and Microbiology for analysis to rule out carcinoma and to evaluate for osteomyelitis. A positive culture will necessitate antibiotic therapy. After discharge, will followup in the office for Silver dressing changes three times per week. Anticipate increased metabolic demands from the infection. Encourage nutritional supplementation with protein to help the healing process. Patient was informed of the risks and complications of the procedure including alternatives to surgery. These were discussed with the patient personally. Patient voices understanding and wishes to proceed. Some of the risks and complications that were discussed included but were not inclusive of failure to diagnose including symptom relief, pain, infection, numbness, stiffness, loss of digit, RSD (CRPS), need for further surgery, contracture, and wound healing problems. We discussed the current risks associated with COVID-19. While it is understood that there is a community spread of COVID-19, the risk of charito COVID-19 while at [facility] ([facility]) is very low; however, the risk cannot be completely mitigated because of the community spread of the disease. We discussed in detail the risk of exposure to and/or potential harm posed by the COVID-19 virus with having a surgery/procedure at this time versus the risk of delaying the surgery/procedure. It is not possible to know either the risk of delaying the surgery or procedure or chance of getting an infection with perfect accuracy, but a joint decision was made to proceed at this time with the scheduled surgery/procedure as indicated on the consent form. Patient was notified that we will need to comply with any screening or testing [facility] wishes to perform or that surgery may be delayed for any positive results. Procedure Criteria Procedure Type:?Elective COVID Risk Discussion: The surgeon/proceduralist and patient have discussed in detail the risk of exposure to and/or potential harm posed by the COVID-19 virus with having a surgery/procedure at this time versus the risk of delaying the surgery/procedure.? It is not possible to know either the risk of delaying the surgery or procedure or chance of getting an infection with perfect accuracy, but a joint decision was made between the patient and the surgeon/proceduralist to proceed at this time with the scheduled surgery/procedure as indicated on the consent form. HPI Consult Data Date of Consult: 10/04/21 PCP / Referring MD: Kush eVga MD Attending Care Provider: Dr. Cornel Linares DO HPI Narrative Reason for Consultation: Infection left long finger tip with osteomyelitis HPI Narrative: VIKASH VIGIL, is a 76 F who presented to the emergency department 0n 10/01/21 with a 1 month history of increasing redness, pain, and swelling of her left long finger. She has a history of picking at her nails and biting her nails. She was placed on antibiotics around September 14, 2021. With antibiotics she had improvement in her symptoms, but they persisted. Due to failure of outpatient therapy, she came to the ED. Labs included a Lactate of 1.1, WBC of 9.3, ESR of 41, and CRP of <2.90. On 08/12/21, she had a HgbA1c of 6.2. X-ray showed acute osteomyelitis. There was some pus draining from the nail bed and a culture was done. She was started on Vancomycin and Unasyn. I was asked to evaluate this patient for surgical options for treatment. [facility] Medical History Abscess of left middle finger Acute osteomyelitis of left hand including fingers Cellulitis of left middle finger Hearing loss, left Hearing loss, right High cholesterol Hypertension Open bite of left middle finger with damage to nail Home Medications alendronate 70 mg PO QWEEK 09/14/21 [History Last Taken Unknown] amlodipine 5 mg PO QHS 09/14/21 [History Last Taken Unknown] amoxicillin-pot clavulanate 1 tab PO BID #20 tab 09/14/21 [Rx Last Taken Unknown] atorvastatin 40 mg PO QHS 09/14/21 [History Last Taken Unknown] Bactrim DS 1 tab PO/SL BID 10/01/21 [History Last Taken Unknown] Vitamin D (with calcium) 5,000 units PO/SL DAILY 10/01/21 [History Last Taken Unknown] Allergy/AdvReac Type Severity Reaction Status Date / Time No Known Allergies Allergy Verified 10/01/21 18:08 Family History Other CAD (coronary artery disease) Heart disease Surgical History H/O: hysterectomy Social History household members: spouse Smoking Status: Never smoker substance use type: does not use ROS ROS Narrative Constitutional: Denies fever, chills, fatigue, anorexia and change in weight Eyes: Denies blurry vision, change in eye color, change in vision, discharge from eye(s), double vision, erythema, eye pain, loss of vision or other HEENT: Denies abnormal hearing, dysphagia, ear pain, epistaxis, headache(s), hearing loss, nasal congestion, nasal discharge, post nasal drip, sinus pressure, sore throat or other Cardiovascular: Denies chest pain or palpitations. Denies dyspnea on exertion, orthopnea and paroxysmal nocturnal dyspnea Respiratory/Chest: Denies cough, excessive phlegm production, shortness of breath with exertion and wheezing Gastrointestinal: Denies abdominal pain, coffee ground emesis, constipation, diarrhea, dyspepsia, hematemesis, hematochezia, loose stools, melena, nausea, vomiting or other Genitourinary: Denies burning urination, difficulty urinating, dysuria, hematuria, nocturia, urinary frequency, urinary hesitancy, urinary incontinence, urinary urgency or other Musculoskeletal: Swelling of left middle finger. Erythema of left middle finger. Neurologic: Denies abnormal gait, abnormal speech, confusion, disequilibrium, dizziness, focal weakness, headache(s), numbness, paresthesias, seizure-like activity, seizures, syncope, tingling, tremor(s) or other Psychiatric: Denies anxiety, depression, homicidal ideation, suicidal ideation or other Endocrinology: Denies change in body appearance, cold intolerance, excessive sweating, heat intolerance, polydipsia, polyuria or other Hematologic/Lymphatic: Denies anemia, easy bleeding, easy bruising, lymphadenopathy or other Integumentary: Denies rashes Allergic/Immunologic: Denies rhinitis, hives, eczema, asthma or other Physical Exam Narrative General: Well-nourished, well-developed. Eyes: PERRLA, EOMI, throat is clear. Neck: Supple, nontender. No cervical adenopathy. CVS: Regular rate and rhythm. Respiratory : clear to auscultation bilaterally. Abdomen: Soft, nondistended. Extremities: Swelling and mild erythema of left long finger. Tenderness to palpation. Pus was expressed from underneath the nail probably tracking down to the distal phalanx. Nail plate is deformed and thickened. There is an ulcer on the distal aspect of the nail with abnormal granulation tissue present. Radial pulses are palpable. No axillary adenopathy. Neuro: Cranial nerves II through XII grossly intact. Psychiatry: Normal mood. Normal affect. Lab / Micro Data Attestation: I reviewed the patient's lab results. Result Diagrams: 10/03/21 06:15 10/03/21 06:15 Labs: Laboratory Results - last 24 hr 10/02/21 04:23: WBC 8.0, RBC 3.59 L, Hgb 10.7 L, Hct 31.8 L, MCV 88.6, MCH 29.8, MCHC 33.6, RDW Std Deviation 43.7, RDW Coeff of Abdulaziz 13.4, Plt Count 339, MPV 9.3, Immature Gran % (Auto) 0.300, Neut % (Auto) 66.5, Lymph % (Auto) 18.0 L, [place] % (Auto) 12.0 H, Eos % (Auto) 2.6, Baso % (Auto) 0.6, Absolute Neuts (auto) 5.3, Absolute Lymphs (auto) 1.44, Nucleated RBC % 0 10/02/21 04:23: Sodium 140, Potassium 3.7, Chloride 110 H, Carbon Dioxide 25.0, Anion Gap 5, BUN 15, Creatinine 0.84, Estim Creat Clear Calc 44.20, Est GFR (MDRD) Af Amer 84, Est GFR (MDRD) Non-Af 69, BUN/Creatinine Ratio 17.8, Glucose 97, Calcium 8.2 L Micro: Microbiology 10/01/21 18:22 Wound - Finger Gram Stain - Final RAD/Finger(s) Min 2 Views IMPRESSION: Findings consistent with acute osteomyelitis of the distal phalanx of the middle finger Electronically Signed: Gagandeep Vernon MD at 20:21 EDT , Procedure Criteria Type of Procedure Procedure Type: Elective Elective Risks - COVID COVID Risk Discussion: The surgeon/proceduralist and patient have discussed in detail the risk of exposure to and/or potential harm posed by the COVID-19 virus with having a surgery/procedure at this time versus the risk of delaying the surgery/procedure. It is not possible to know either the risk of delaying the surgery or procedure or chance of getting an infection with perfect accuracy, but a joint decision was made between the patient and the surgeon/proceduralist to proceed at this time with the scheduled surgery/procedure as indicated on the consent form. Charges/Coding Visit Charges Inpatient E&M: 29884 Init Hosp L2 (ICD-10 - L02.512, L03.012, M86.142, S61.353A)
[2021-10-03 03:45] VITALS: BP 131/100; PULSE 66; RESP 16; TEMP 36.6; O2SAT 100
[2021-10-03 06:30] LABS: Absolute Neutrophil Count 3.1 X10^3/uL (2.0-7.7); Basophil# 0.04 X10^3/uL; Basophil% 0.7 % (0-1); Eosinophil# 0.32 X10^3/uL; Eosinophils% 5.4 % (0-5); Hematocrit 33.8 % (37-47); Hemoglobin 10.8 g/dL (12.0-15.0); Lymphocyte % 30.2 % (19-41); Mean Corpuscular Hgb 29.3 pg (27.0-32.0); Mean Corpuscular Volume 91.6 fL (81-99); Mean Platelet Vol. 9.2 fl (6.2-12.0); Monocyte# 0.74 X10^3/uL; Monocyte% 12.4 % (0-10); NRBC Flagged by Analyzer 0 % (0-5); Neutrophil # 3.05 X10^3/uL (2.7-7.7); Neutrophil % 51.1 % (47-70); Platelet Count 317 K/mm3 (150-450); RBC Distribution Width CV 13.4 % (11.6-14.6); RBC Distribution Width SD 45.1 fl (35.1-43.9); Red Blood Count 3.69 M/mm3 (4.2-5.4)
[2021-10-03 06:54] LABS: Anion Gap 4 (5-15); BUN 18 mg/dL (7-18); BUN/Creat Ratio 18.7 RATIO (10-20); Calcium,Total 8.8 mg/dL (8.5-10.1); Chloride 111 mmol/L (98-107); Creatinine, Serum 0.96 mg/dL (0.55-1.02); EST Glomerular Filtration Rate 59 mL/min (>60); Est Glom Filt Rate - Afr Amer 72 mL/min (>60); Estimated Creatinine Clearance 38.68 ml/min; Glucose 92 mg/dL (74-106); Potassium 4.2 mmol/L (3.5-5.1); Sodium Level 142 mmol/L (136-145)
[2021-10-03 07:57] VITALS: O2SAT 100
[2021-10-03 08:16] VITALS: BP 154/60; PULSE 50; RESP 17; TEMP 36.9; O2SAT 99
[2021-10-03] MEDS: Cholecalciferol (VIT D3) 25 MCG TABLET (1,000 UNITS) 125 MCG PO (08:21)
[2021-10-03] MEDS: amLODIPine 5 MG Tablet PO (08:21)
--- NOTE | 2021-10-03 08:44 | WOUNDNOTE ---
wound photo: left long finger
--- NOTE | 2021-10-03 13:16 | PCM.PN.HOSP ---
Subjective Subjective No new events. Objective Data Objective Data Vital Signs: Vital Signs Temp Pulse Resp BP Pulse Ox 36.9 C 50 L 17 154/60 H 99 10/03/21 08:16 10/03/21 08:16 10/03/21 08:16 10/03/21 08:16 10/03/21 08:16 Oxygen Delivery Method Room Air Weight: 49.924 kg Body Mass Index (BMI) 21.6 Intake & Output: Intake and Output for Last 24 Hours 10/01/21 10/02/21 10/03/21 23:59 23:59 23:59 Intake Total 387 / 387 1208 / 1208 489 / 489 Balance 387 / 387 1208 / 1208 489 / 489 Lab / Micro Data Result Diagrams: 10/03/21 06:15 10/03/21 06:15 Labs: Laboratory Results - last 24 hr 10/03/21 06:15: WBC 6.0, RBC 3.69 L, Hgb 10.8 L, Hct 33.8 L, MCV 91.6, MCH 29.3, MCHC 32.0, RDW Std Deviation 45.1 H, RDW Coeff of Abdulaziz 13.4, Plt Count 317, MPV 9.2, Immature Gran % (Auto) 0.200, Neut % (Auto) 51.1, Lymph % (Auto) 30.2, [place] % (Auto) 12.4 H, Eos % (Auto) 5.4 H, Baso % (Auto) 0.7, Absolute Neuts (auto) 3.1, Absolute Lymphs (auto) 1.80, Nucleated RBC % 0 10/03/21 06:15: Sodium 142, Potassium 4.2, Chloride 111 H, Carbon Dioxide 27.0, Anion Gap 4 L, BUN 18, Creatinine 0.96, Estim Creat Clear Calc 38.68, Est GFR (MDRD) Af Amer 72, Est GFR (MDRD) Non-Af 59 L, BUN/Creatinine Ratio 18.7, Glucose 92, Calcium 8.8 Micro: Microbiology 10/01/21 18:22 Wound - Finger Gram Stain - Final 10/01/21 18:22 Wound - Finger Wound Culture - Preliminary Streptococcus group C Staphylococcus aureus Physical Exam Const alert and no apparent distress Extremity Extremity Narrative: Resolving erythema on the dorsum of her left hand. No further purulence from the distal tip of her left long finger. Still with edema of the left long finger. Assessment & Plan Assessment/Plan (1) Cellulitis and abscess of finger, unspecified: (2) Osteomyelitis of finger of left hand: PLAN: 1. Osteomyelitis/cellulitis and abscess of left middle finger. Failed outpatient antibiotics. Culture of pus obtained at the emergency department, follow. PRS on consult I am concerned the patient may have scleroderma with her digits or least Raynaud's but patient does not have any other clinical findings typically seen. She denies a history of Raynaud's. But if patient has poor vascular supply that may be complicating issue in regards to her cellulitis and osteomyelitis. For this I will order an KEYONNA but would recommend patient follow-up with rheumatology for additional follow-up and studies. 2. Hypertension stable Trend blood pressure and adjust blood pressure medications. Kidney functions normal and no acute kidney injury and certainly not a scleroderma renal crisis. But consider RAJWINDER inhibitor if blood pressure becomes more difficult to control despite amlodipine. 3. DVT prophylaxis SCD ordered. Charges/Coding Visit Charges Inpatient E&M: 17757 Subs Hosp L1
[2021-10-03 15:38] VITALS: BP 117/89; PULSE 78; RESP 18; TEMP 36.7; O2SAT 96
[2021-10-03] MEDS: Atorvastatin Calcium 40 MG Tablet PO (20:51)
[2021-10-03 21:00] VITALS: BP 156/74; PULSE 65; RESP 16; TEMP 36.6; O2SAT 97
[2021-10-03 21:06] LABS: Vancomycin, Trough Level 8.7 ug/mL (5.0-15.0)
[2021-10-04] VITALS (10 sets, daily range): BP systolic 120–178; BP diastolic 64–89; PULSE 60–73; RESP 16–17; TEMP 36.2–36.9; O2SAT 93–100; BMI 21.6
--- NOTE | 2021-10-04 00:26 | PCM.RX.CS ---
Consult Pharmacy has been consulted to manage selected antiobiotic: Vancomycin Type of Consult: Follow-up Suspected Infection: Skin/Soft tissue Prior Doses of Antibiotics Received/Current Regimen: Medications Vancomycin HCl 1,500 mg/ (Sodium Chloride) 530 mls @ 250 mls/hr IV Q24H ADRIEN Discontinued Medications Vancomycin HCl 750 mg/ Sodium (Chloride) 265 mls @ 250 mls/hr IV Q24H ADRIEN Stop: 10/04/21 00:23 Last Admin: 10/03/21 20:50 Dose: 250 mls/hr Documented by: Labs: Sodium 142 mmol/L (136-145) 10/03/21 06:15 Potassium 4.2 mmol/L (3.5-5.1) 10/03/21 06:15 Chloride 111 mmol/L (98-107) H 10/03/21 06:15 Carbon Dioxide 27.0 mmol/L (21.0-32.0) 10/03/21 06:15 Anion Gap 4 (5-15) L 10/03/21 06:15 BUN 18 mg/dL (7-18) 10/03/21 06:15 Creatinine 0.96 mg/dL (0.55-1.02) 10/03/21 06:15 Est GFR (MDRD) Af Amer 72 mL/min (>60) 10/03/21 06:15 Est GFR (MDRD) Non-Af 59 mL/min (>60) L 10/03/21 06:15 BUN/Creatinine Ratio 18.7 RATIO (10-20) 10/03/21 06:15 Glucose 92 mg/dL (74-106) 10/03/21 06:15 Vancomycin Trough 8.7 ug/mL (5.0-15.0) 10/03/21 20:28 Microbiology: Microbiology 10/03/21 Unknown Nasal Secretion SARS-CoV-2 Antigen (Rapid) - Final 10/01/21 18:22 Wound - Finger Gram Stain - Final 10/01/21 18:22 Wound - Finger Wound Culture - Preliminary Streptococcus group C Staphylococcus aureus Weight used for dosin.9 kg Estimated Creatinine Clearance: 39 Goal Trough: 15-20 mcg/mL Pharmacy Plan for Drug Dosing: Vancomycin trough level of 8.7 was below the target range of 15-20. Will increase dose to 1500mg q24h and re-draw a trough prior to 3rd dose of new regimen. Pharmacy Service will continue to monitor and adjust dosing as required. Follow-Up Labs: Trough Vancomycin Labs to be done on [date and time ordered]: 10/06/21 @2030
--- NOTE | 2021-10-04 05:00 | EKG12_ITS ---
Test Reason : PRE OP Blood Pressure : / mmHG Vent. Rate : 062 BPM Atrial Rate : 062 BPM P-R Int : 170 ms QRS Dur : 076 ms QT Int : 436 ms P-R-T Axes : 022 -10 036 degrees QTc Int : 442 ms Normal sinus rhythm Normal ECG When compared with ECG of 01-JAN-2019 15:48, Non-specific change in ST segment in Lateral leads T wave amplitude has increased in Anterior leads Confirmed by LILIBETH KRAMER, SONIA ([id number]), associate editor CHRIST SUN ([id number]) on 10/08/2021 10:43:27 AM Referred By: SAMUEL Confirmed By:SONIA MCELROY MD
[2021-10-04] MEDS: amLODIPine 5 MG Tablet PO (08:23)
[2021-10-04] MEDS: 0.9% Saline Lock 10 ML Syringe IV ×2 (08:29→08:30)
[2021-10-04] MEDS: Ondansetron 4 MG/2 ML Vial IV (08:50)
--- NOTE | 2021-10-04 13:00 | SOF_PTH ---
PATIENT: VIKASH VIGIL LOC: MS3 U#:[id number] AGE/SX: 76/F ROOM: DE321 RE10/01/[address]: Dr. Sofia Barraza MD : 1945 BED: 1 DIS: 10/07/2021 SPEC #: [id number] RECD: 10/04/21 15:31 STATUS: QUENTIN REMi #: [id number] CARMEN: 10/04/21 13:[address]: Shakeel Rosa DEPT: SURGICAL PATHOLOGY RECD BY: Mikayla Noel ENTERED: 10/07/21 10:28 SP TYPE: SOFT TISS OTHR DR: MD Dr. Shakeel Najera MD Dr. Nana Yaa Koram, MD Dr. Robert Leininger, MD Elizabeth Steiner, PACKAGE COLLECTOR-C Tissues: A - Soft tissues, NOS B - Bones of extremities, NOS Procedures: Decalcification bone/plaque Surgery Specimen Level IV Comments: @ Ordering doctor for DEC edited from to DR.JSLABY Mattie ROBERTSON at 10/07/21 1509 @ Ordering doctor for SUIV edited from to DR.JSLABY Mattie ROBERTSON at 10/07/21 150Nataly @ Submitting doctor edited from to DR.JSLABY Mattie ROBERTSON at 10/07/21 1509 HEADER OPERATION: Debride infected long fingertip with partial ostectomy PRE-OP DIAGNOSIS: Infected left long fingertip with osteomyelitis TISSUE SUBMITTED: A ? Left long finger soft tissue, B ? Left long finger bone MICROSCOPIC DIAGNOSIS A. Left long finger soft tissue: Focal ulceration, acute and chronic inflammation, hyperkeratosis and pseudoepitheliomatous hyperplasia. Fragments of bone with acute and chronic osteomyelitis and reactive changes. B. Left long finger bone: Fragments of bone with acute and chronic osteomyelitis and reactive changes. SJ:stephanie 10/10/2021 MICROSCOPIC DESCRIPTION Slides are reviewed. GROSS DESCRIPTION A - Received in fixative is one container labeled with the patient's name and designated left long finger soft tissue. The specimen consists of multiple irregular fragments of amanda soft tissue and bone ranging in size from 0.2 to 2 cm. The specimen is sectioned and totally submitted in two cassettes as follows: 1??soft tissue, 2 - soft tissue and bone after decalcification. B - Received in fixative is one container labeled with the patient's name and designated left long finger bone. The specimen consists of three irregular fragments of amanda bone that in aggregate measure 1.3 x 0.5 x 0.2 cm. The specimen is totally submitted in one cassette after decalcification. / KALIE:stephanie 10/07/2021 TC:2 CPT: 75337 x2, 56341 x2
--- NOTE | 2021-10-04 13:02 | PCM.PN.HOSP ---
Subjective Subjective resolving erythema Objective Data Objective Data Vital Signs: Vital Signs Temp Pulse Resp BP Pulse Ox 36.9 C 68 16 162/83 H 100 10/04/21 08:14 10/04/21 08:14 10/04/21 08:14 10/04/21 08:14 10/04/21 08:14 Oxygen Delivery Method Room Air Weight: 49.924 kg Body Mass Index (BMI) 21.6 Intake & Output: Intake and Output for Last 24 Hours 10/02/21 10/03/21 10/04/21 23:59 23:59 23:59 Intake Total 1208 / 1208 963 / 963 489 / 489 Balance 1208 / 1208 963 / 963 489 / 489 Lab / Micro Data Result Diagrams: 10/03/21 06:15 10/03/21 06:15 Labs: Laboratory Results - last 24 hr 10/03/21 20:28: Vancomycin Trough 8.7 Micro: Microbiology 10/01/21 18:22 Wound - Finger Gram Stain - Final 10/01/21 18:22 Wound - Finger Wound Culture - Final Streptococcus group C Staphylococcus aureus 10/03/21 Unknown Nasal Secretion SARS-CoV-2 Antigen (Rapid) - Final Physical Exam Const alert and no apparent distress HEENT head/scalp atraumatic Head and Scalp: normocephalic Extremity Extremity Narrative: resolving erythema on dorsum of left hand. left long finger bandaged--did not remove. Skin no rashes or lesions noted Neuro Sensorium / Orientation: awake and alert Psych affect normal Assessment & Plan Assessment/Plan (1) Cellulitis and abscess of finger, unspecified: (2) Osteomyelitis of finger of left hand: PLAN: 1. Osteomyelitis/cellulitis and abscess of left middle finger. Failed outpatient antibiotics. Culture of pus obtained at the emergency department, follow. PRS on consult I am concerned the patient may have scleroderma with her digits or least Raynaud's but patient does not have any other clinical findings typically seen. She denies a history of Raynaud's. But if patient has poor vascular supply that may be complicating issue in regards to her cellulitis and osteomyelitis. For this I will order an KEYONNA but would recommend patient follow-up with rheumatology for additional follow-up and studies. Cx showed group C strep and MSSA, change to cefazolin 2. Hypertension stable Trend blood pressure and adjust blood pressure medications. Kidney functions normal and no acute kidney injury and certainly not a scleroderma renal crisis. But consider RAJWINDER inhibitor if blood pressure becomes more difficult to control despite amlodipine. 3. DVT prophylaxis SCD ordered. Charges/Coding Visit Charges Inpatient E&M: 84502 Subs Hosp L2
[2021-10-04] MEDS: Cefazolin 2 GM in 0.9% Normal Saline 100 ML IV ×2 (13:35→22:01)
--- NOTE | 2021-10-04 14:34 | OP.PCM_ITS ---
Problems Associated Problem List Diagnoses (1) Abscess of left middle finger: (2) Cellulitis of left middle finger: (3) Acute osteomyelitis of left hand including fingers: (4) Open bite of left middle finger with damage to nail: Report of Operation Date of Procedure: 10/04/21 Pre-Operative Diagnosis: 1. Abscess ulcer involving the nail complex left long finger tip. 2. Cellulitis left long finger. 3. Osteomyelitis distal phalanx left long finger. 4. Open bite left long finger from chronic nail biting. Post-Operative Diagnosis: Same. Surgery/Procedure Performed:: 1. Surgical preparation left long finger tip with incision and drainage and excisional debridement infected ulcer abscess including nail bed complex. 2. Partial ostectomy distal phalanx for osteomyelitis left long finger. Description of Surgical Findings:: VIKASH VIGIL, is a 76 F who presented to the emergency department 0n 10/01/21 with a 1 month history of increasing redness, pain, and swelling of her left long finger. She has a history of picking at her nails and biting her nails. She was placed on antibiotics around September 14, 2021. With antibiotics she had improvement in her symptoms, but they persisted. Due to failure of outpatient therapy, she came to the ED. Labs included a Lactate of 1.1, WBC of 9.3, ESR of 41, and CRP of <2.90. On 08/12/21, she had a HgbA1c of 6.2. X-ray showed acute osteomyelitis. There was some pus draining from the nail bed and a culture was done. She was started on Vancomycin and Unasyn. I was asked to evaluate this patient for surgical options for treatment. Patient was informed of the risks and complications of the procedure including alternatives to surgery. These were discussed with the patient personally. Patient voices understanding and wishes to proceed. Some of the risks and complications that were discussed included but were not inclusive of failure to diagnose including symptom relief, pain, infection, numbness, stiffness, loss of digit, RSD (CRPS), need for further surgery, contracture, and wound healing problems. Total tourniquet time - 34 minutes. Size of defect left long finger tip - 1.5 x 1.5 x 0.5 cm. Surgeon: Shakeel Rosa public health worker: None Type of Anesthesia: Local MAC (xylocaine with epinephrine digital metacarpal block and IV sedation.) Specimen's removed: 1. Left long finger tip soft tissue to Pathology and Microbiology. 2. Left long finger tip distal phalanx bone to Pathology and Microbiology. Drains: None. Estimated Blood Loss (mL): 2. Description of Procedure: Patient was taken to OR in supine position and was given IV sedation. Anesthesia performed the digital metacarpal block in the preop area. The left was prepped and draped in the usual fashion. SCD's were placed for DVT prophylaxis. Perioperative antibiotics were given intravenously. A digital tourniquet was applied. Upon closer exam, there is abnormal granulation tissue on top of the nail that was excised. There was an opening in the nail plate. I probed the opening and it tracked down to the bone. Using an elevator I removed the deformed nail plate. Pus was seen emanating from the distal phalanx and coming through the opening in the nail bed. The opening in the nail bed was frayed. In order to salvage the nail bed a nail bed graft would be needed. In this case, the nail bed graft would not be done because of the presence of pus and osteomyelitis. In order to begin the healing process, the remaining nail bed complex was excised in order to provide better wound care with Silver dressings. Using a rongeur, I proceeded with a partial ostectomy of the distal phalanx. The bone was a little soft which can indicate osteomyelitis. A rasp was used to smooth out the bony edges. Half the soft tissue and half the bone will be sent to Pathology for analysis to rule out carcinoma and to evaluate for osteomyelitis. Half the soft tissue and half the boner will be sent to Microbiology for culture. A positive culture will necessitate antibiotic therapy. The size of the remaining finger tip wound after incision and drainage and excisional debridement including nail bed complex was 1.5 x 1.5 x 0.5 cm. The wound was irrigated with saline. A piece of Silver dressing was placed in the wound and secured with 4-0 Nylon tie over stent suture dressing. 2x2 gauze was placed over the dressing followed by 2 inch Sotero compression wrap. The tourniquet was released after 34 minutes. Prior to placing the Sotero wrap, there was no evidence of vascular compromise of the finger tip. The plan is to proceed with wound care with Silver dressing changes and treat the infection with antibiotics. Based on the cultures and based on the presence of osteomyelitis, IV antibiotics may be needed at which time a PICC line will be placed. After the wound has stabilized can then proceed with a revision amputation. Depending on the quality of the skin edges will determine if we can then close the wound with the volar skin flap or if we need to debride the skin edges which would necessitate shortening of the bone possibly into the distal aspect of the middle phalanx in order close the amputation stump with no tension. Patient tolerated the procedure well and was sent to PACU in satisfactory condition. Patient will be sent upstairs for continued postop care. Will remove the operative dressing and evaluate the wound in a few days. She will followup in the office for continued wound care. Grafts/Implants Used: None. Complications None. Admit VTE Documentation VTE Present on Admission: No VTE Mechan Device Prophylaxis: SCD's VTE Pharm Prophylaxis ordered?: No Addendum Addendum: Surgery Charges CPT - 40102 ICD-10 - L02.512, L03.012, M86.142, S61.353A 11795 M86.142, L02.512, L03.012, S61.353A
[2021-10-04 16:01] LABS: ANTINUCLEAR ANTIBODIES DIRECT Negative (Negative)
[2021-10-04] MEDS: Acetaminophen 325 MG Tablet 650 MG PO (18:17)
[2021-10-04] MEDS: Atorvastatin Calcium 40 MG Tablet PO (21:56)
[2021-10-05 02:40] VITALS: BP 136/95; PULSE 58; RESP 16; TEMP 36.4; O2SAT 96
[2021-10-05] MEDS: Cefazolin 2 GM in 0.9% Normal Saline 100 ML IV ×3 (05:27→21:42)
[2021-10-05 06:36] LABS: Absolute Neutrophil Count 3.4 X10^3/uL (2.0-7.7); Basophil# 0.05 X10^3/uL; Basophil% 0.8 % (0-1); Eosinophil# 0.45 X10^3/uL; Hematocrit 33.3 % (37-47); Hemoglobin 10.7 g/dL (12.0-15.0); Lymphocyte % 28.2 % (19-41); Mean Corp Hgb Conc 32.1 g/dL (32-36); Mean Corpuscular Hgb 28.8 pg (27.0-32.0); Mean Corpuscular Volume 89.8 fL (81-99); Mean Platelet Vol. 9.3 fl (6.2-12.0); Monocyte# 0.66 X10^3/uL; Monocyte% 10.3 % (0-10); NRBC Flagged by Analyzer 0 % (0-5); Neutrophil # 3.41 X10^3/uL (2.7-7.7); Neutrophil % 53.4 % (47-70); Platelet Count 344 K/mm3 (150-450); RBC Distribution Width CV 13.2 % (11.6-14.6); RBC Distribution Width SD 43.6 fl (35.1-43.9); Red Blood Count 3.71 M/mm3 (4.2-5.4); White Blood Count 6.4 K/mm3 (4.4-11.0)
[2021-10-05 07:00] LABS: Anion Gap 3 (5-15); BUN 16 mg/dL (7-18); BUN/Creat Ratio 17.8 RATIO (10-20); Calcium,Total 8.4 mg/dL (8.5-10.1); Chloride 109 mmol/L (98-107); EST Glomerular Filtration Rate 65 mL/min (>60); Est Glom Filt Rate - Afr Amer 78 mL/min (>60); Estimated Creatinine Clearance 41.26 ml/min; Glucose 95 mg/dL (74-106); Potassium 4.1 mmol/L (3.5-5.1); Sodium Level 139 mmol/L (136-145)
[2021-10-05 07:45] VITALS: BP 155/80; PULSE 66; RESP 16; TEMP 36.7; O2SAT 100
[2021-10-05] MEDS: amLODIPine 5 MG Tablet PO (07:52)
[2021-10-05] MEDS: Acetaminophen 325 MG Tablet 650 MG PO (07:52)
[2021-10-05] MEDS: Cholecalciferol (VIT D3) 25 MCG TABLET (1,000 UNITS) 125 MCG PO (07:52)
--- NOTE | 2021-10-05 13:02 | PCM.PN.HOSP ---
Subjective Subjective S/P debridement 10/04. Feeling well. Objective Data Objective Data Vital Signs: Vital Signs Temp Pulse Resp BP Pulse Ox 36.7 C 66 16 155/80 H 100 10/05/21 07:45 10/05/21 07:45 10/05/21 07:45 10/05/21 07:45 10/05/21 07:45 Oxygen Delivery Method Room Air Weight: 49.924 kg Body Mass Index (BMI) 21.6 Intake & Output: Intake and Output for Last 24 Hours 10/03/21 10/04/21 10/05/21 23:59 23:59 23:59 Intake Total 963 / 963 1309 / 1509 310 / 310 Balance 963 / 963 1309 / 1509 310 / 310 Lab / Micro Data Result Diagrams: 10/05/21 05:57 10/05/21 05:57 Labs: Laboratory Results - last 24 hr 10/03/21 06:15: KEYONNA Screen Negative, DARCY-1 Antibody Not Reportable, SS-A/Ro IgG Antibody Not Reportable, SS-B/La IgG Antibody Not Reportable, Sm ([place]) Antibody Not Reportable, MACHINIST SUPERVISOR OUTSIDE Antibody Not Reportable, Scl-70 Scleroderma Ab Not Reportable, Double Strand DNA Ab Not Reportable, Centromere B Antibody Not Reportable 10/05/21 05:57: WBC 6.4, RBC 3.71 L, Hgb 10.7 L, Hct 33.3 L, MCV 89.8, MCH 28.8, MCHC 32.1, RDW Std Deviation 43.6, RDW Coeff of Abdulaziz 13.2, Plt Count 344, MPV 9.3, Immature Gran % (Auto) 0.300, Neut % (Auto) 53.4, Lymph % (Auto) 28.2, [place] % (Auto) 10.3 H, Eos % (Auto) 7.0 H, Baso % (Auto) 0.8, Absolute Neuts (auto) 3.4, Absolute Lymphs (auto) 1.80, Nucleated RBC % 0 10/05/21 05:57: Sodium 139, Potassium 4.1, Chloride 109 H, Carbon Dioxide 27.0, Anion Gap 3 L, BUN 16, Creatinine 0.90, Estim Creat Clear Calc 41.26, Est GFR (MDRD) Af Amer 78, Est GFR (MDRD) Non-Af 65, BUN/Creatinine Ratio 17.8, Glucose 95, Calcium 8.4 L Micro: Microbiology 10/04/21 14:01 Bone - Finger Gram Stain - Final 10/04/21 14:01 Bone - Finger Wound Culture - Preliminary Staphylococcus aureus 10/04/21 14:00 Tissue - Finger Gram Stain - Final 10/04/21 14:00 Tissue - Finger Wound Culture - Preliminary Staphylococcus aureus 10/01/21 18:22 Wound - Finger Gram Stain - Final 10/01/21 18:22 Wound - Finger Wound Culture - Final Streptococcus group C Staphylococcus aureus 10/03/21 Unknown Nasal Secretion SARS-CoV-2 Antigen (Rapid) - Final Physical Exam Const alert and no apparent distress Extremity Extremity Narrative: Left middle finger bandaged--did not remove. resolved erythema on dorsum on left hand Assessment & Plan Assessment/Plan (1) Cellulitis and abscess of finger, unspecified: (2) Osteomyelitis of finger of left hand: PLAN: 1. Osteomyelitis/cellulitis and abscess of left middle finger. Failed outpatient antibiotics. Cx showed group C strep and MSSA, change to cefazolin Scleroderma work up negative. (autoimmune labs negative) 10/04: 1. Surgical preparation left long finger tip with excisional debridement infected ulcer abscess including nail bed complex. 2. Partial ostectomy distal phalanx for osteomyelitis left long finger. Plan: continue cefazolin consult ID for further recommendations: change to PO or continue IV abx. Pt aware if IV abx needed that she will need a PICC line and may be on abx for 4-6 weeks. 2. Hypertension stable Trend blood pressure and adjust blood pressure medications. Kidney functions normal and no acute kidney injury and certainly not a scleroderma renal crisis. But consider RAJWINDER inhibitor if blood pressure becomes more difficult to control despite amlodipine. 3. DVT prophylaxis SCD ordered. Greater than 25 minutes of which greater than 50% of time was counseling the patient about of bone infection, potential need for IV antibiotics. Charges/Coding Visit Charges Inpatient E&M: 55985 Subs Hosp L2
[2021-10-05 14:30] VITALS: BP 141/85; PULSE 56; RESP 16; TEMP 36.4; O2SAT 97
[2021-10-05] MEDS: 0.9% Saline Lock 10 ML Syringe IV ×2 (14:35→21:45)
[2021-10-05] MEDS: Atorvastatin Calcium 40 MG Tablet PO (21:42)
[2021-10-05 21:56] VITALS: BP 140/72; PULSE 64; RESP 16; TEMP 36.4; O2SAT 98
[2021-10-06] MEDS: Cefazolin 2 GM in 0.9% Normal Saline 100 ML IV ×3 (05:02→22:04)
[2021-10-06] MEDS: 0.9% Saline Lock 10 ML Syringe IV ×2 (05:03→22:05)
[2021-10-06 05:19] VITALS: BP 130/71; PULSE 51; RESP 16; TEMP 36.6; O2SAT 98
[2021-10-06 05:49] LABS: Anion Gap 4 (5-15); BUN 22 mg/dL (7-18); BUN/Creat Ratio 26.9 RATIO (10-20); Calcium,Total 8.8 mg/dL (8.5-10.1); Chloride 110 mmol/L (98-107); Creatinine, Serum 0.82 mg/dL (0.55-1.02); EST Glomerular Filtration Rate 72 mL/min (>60); Est Glom Filt Rate - Afr Amer 87 mL/min (>60); Estimated Creatinine Clearance 45.28 ml/min; Glucose 95 mg/dL (74-106); Potassium 3.9 mmol/L (3.5-5.1); Sodium Level 141 mmol/L (136-145)
[2021-10-06 08:28] VITALS: BP 137/75; PULSE 55; RESP 16; TEMP 36.4; O2SAT 98
[2021-10-06 08:30] VITALS: PULSE 55
[2021-10-06] MEDS: Cholecalciferol (VIT D3) 25 MCG TABLET (1,000 UNITS) 125 MCG PO (08:32)
--- NOTE | 2021-10-06 11:34 | PN.HOSP_ITS ---
Subjective Subjective Patient seen and examined. She had no acute complaints and had an uneventful night. Review of systems is otherwise negative. She has remained hemodynamically stable. Objective Data Objective Data Vital Signs: Vital Signs Temp Pulse Resp BP Pulse Ox 97.5 F L 55 L 16 137/75 H 98 10/06/21 08:28 10/06/21 08:30 10/06/21 08:28 10/06/21 08:28 10/06/21 08:28 Oxygen Delivery Method Room Air Weight: 110 lb 1.017 oz Body Mass Index (BMI) 21.6 Intake & Output: Intake and Output for Last 24 Hours 10/04/21 10/05/21 10/06/21 23:59 23:59 23:59 Intake Total 1309 / 1509 1050 / 1050 110 / 110 Balance 1309 / 1509 1050 / 1050 110 / 110 Lab / Micro Data Result Diagrams: 10/05/21 05:57 10/06/21 05:10 Labs: Laboratory Results - last 24 hr 10/06/21 05:10: Sodium 141, Potassium 3.9, Chloride 110 H, Carbon Dioxide 27.0, Anion Gap 4 L, BUN 22 H, Creatinine 0.82, Estim Creat Clear Calc 45.28, Est GFR (MDRD) Af Amer 87, Est GFR (MDRD) Non-Af 72, BUN/Creatinine Ratio 26.9 H, Glucose 95, Calcium 8.8 Micro: Microbiology 10/04/21 14:01 Bone - Finger Gram Stain - Final 10/04/21 14:01 Bone - Finger Wound Culture - Preliminary Staphylococcus aureus Staphylococcus species 10/04/21 14:00 Tissue - Finger Gram Stain - Final 10/04/21 14:00 Tissue - Finger Wound Culture - Final Staphylococcus aureus 10/01/21 18:22 Wound - Finger Gram Stain - Final 10/01/21 18:22 Wound - Finger Wound Culture - Final Streptococcus group C Staphylococcus aureus 10/03/21 Unknown Nasal Secretion SARS-CoV-2 Antigen (Rapid) - Final Physical Exam Const alert, oriented x3 and no apparent distress Exam Limitations: no limitations HEENT head/scalp atraumatic and moist oral mucous membranes Head and Scalp: normocephalic Eyes PERRL and EOMs intact bilaterally Neck no lymphadenopathy and supple Resp normal respiratory effort, no retractions, no use of accessory muscles and clear to auscultation bilaterally Cardio regular rate, regular rhythm, S1 normal heart sound, S2 normal heart sound and no murmurs GI normal to inspection, nondistended, normoactive bowel sounds, soft to palpation, non-tender and non-distended Extremity Extremity Narrative: left middle finger wrapped in bandage Peripheral Pulses: Yes pulses 2+ throughout Skin Skin Narrative: as under extremity Neuro oriented x3, CN's II-XII intact bilaterally and moves all extremities Sensorium / Orientation: awake and alert Psych affect normal Assessment & Plan Assessment/Plan (1) Acute osteomyelitis of left hand including fingers: PLAN: #Acute osteomyelitis and celulitis of left middle finger * failed outpatient antibiotics * wound culture grew Strep and MSSA * on IV cefazolin * s/.p debridement and partial ostectomy of distal phalanx. Plastic surgery on board * ID consulted for antibiotic recommendation; will see tomorrow * #Hypertension; * On amlodipine blood pressure fairly stable * #DVT prophylaxis: Lovenox Disposition: for likely DC tomorrow once ID evaluates her Charges/Coding Visit Charges Inpatient E&M: 39703 Subs Hosp L2
[2021-10-06 13:59] VITALS: BP 150/69; PULSE 63; RESP 18; TEMP 36.4; O2SAT 96
[2021-10-06] MEDS: amLODIPine 5 MG Tablet PO (13:59)
[2021-10-06 19:46] VITALS: BP 155/84; PULSE 62; RESP 16; TEMP 36.6; O2SAT 100
[2021-10-06] MEDS: Atorvastatin Calcium 40 MG Tablet PO (22:04)
[2021-10-07 02:37] VITALS: BP 135/69; PULSE 52; RESP 16; TEMP 36.3; O2SAT 98
[2021-10-07] MEDS: Cefazolin 2 GM in 0.9% Normal Saline 100 ML IV (05:42)
[2021-10-07] MEDS: 0.9% Saline Lock 10 ML Syringe IV ×2 (05:43→14:25)
[2021-10-07 06:33] LABS: Absolute Lymphocyte Count 2.09 X10^3/uL (0.83-4.51); Absolute Neutrophil Count 3.2 X10^3/uL (2.0-7.7); Basophil# 0.05 X10^3/uL; Basophil% 0.8 % (0-1); Eosinophils% 6.1 % (0-5); Hematocrit 34.3 % (37-47); Hemoglobin 11.3 g/dL (12.0-15.0); Lymphocyte # 2.09 X10^3/ul (0.83-4.51); Lymphocyte % 32.1 % (19-41); Mean Corp Hgb Conc 32.9 g/dL (32-36); Mean Corpuscular Hgb 29.7 pg (27.0-32.0); Mean Corpuscular Volume 90.3 fL (81-99); Mean Platelet Vol. 9.5 fl (6.2-12.0); Monocyte# 0.72 X10^3/uL; Monocyte% 11.1 % (0-10); NRBC Flagged by Analyzer 0 % (0-5); Neutrophil # 3.23 X10^3/uL (2.7-7.7); Neutrophil % 49.6 % (47-70); Platelet Count 327 K/mm3 (150-450); RBC Distribution Width CV 13.2 % (11.6-14.6); RBC Distribution Width SD 43.7 fl (35.1-43.9); White Blood Count 6.5 K/mm3 (4.4-11.0)
[2021-10-07 06:47] LABS: Anion Gap 3 (5-15); BUN 19 mg/dL (7-18); BUN/Creat Ratio 23.7 RATIO (10-20); Calcium,Total 9.3 mg/dL (8.5-10.1); Chloride 109 mmol/L (98-107); EST Glomerular Filtration Rate 74 mL/min (>60); Est Glom Filt Rate - Afr Amer 89 mL/min (>60); Estimated Creatinine Clearance 46.41 ml/min; Glucose 97 mg/dL (74-106); Sodium Level 138 mmol/L (136-145)
[2021-10-07 07:55] VITALS: BP 139/73; PULSE 57; RESP 16; TEMP 36.5; O2SAT 100
[2021-10-07] MEDS: Cholecalciferol (VIT D3) 25 MCG TABLET (1,000 UNITS) 125 MCG PO (09:30)
[2021-10-07] MEDS: amLODIPine 5 MG Tablet PO (09:30)
--- NOTE | 2021-10-07 12:35 | CASEMGMT ---
Addendum entered by Jaymie Groves 10/07/21 16:01: Spoke with wound nurse. Pt is aware to leave the dressing intact on her finger until she sees Dr. Rosa in the office. Addendum entered by Jaymie Groves 10/07/21 15:40: Cortexted and COTTON PICKING MACHINE OPERATOR Susan Dick regarding wound care, response not received. Noted silver sutured in wound, pt to follow up with his office. Phone number for Dr. Rosa and added to dc plan. Addendum entered by Jaymie Groves 10/07/21 13:56: RIGO PENN notified by ID that pt would be changed to ceftriaxone daily and she would like to come to the Infusion Center at [facility]. RIGO PENN in to pt room, pt confirms this. TC leeann Ledesma at [facility], appt set up for tomorrow at 1pm. Faxed signed order at this time. Pt is aware of appt time and added to dc instructions. Original Note: RIGO PENN in to pt room to discuss dc planning. Pt states she feels that her could perform wound care for pt. She states he works nights. Discussed the possibility of needing HHC as well if pt needs IV atb. Pt is agreeable to this. Patient was provided a list of HHC providers including quality and resource use data and consistent with the patient?s preferred geographic region, medical needs, and insurance network. Pt to review list in case it is needed after ID c/s.
[2021-10-07 13:17] VITALS: BP 156/71; PULSE 69; RESP 18; TEMP 37; O2SAT 100
--- NOTE | 2021-10-07 13:27 | CON.PCM.ID_ITS ---
Assessment & Plan Assessment/Plan (1) Osteomyelitis of finger of left hand: PLAN: L 3rd finger mssa osteo - wound cx also with strep, surg cx also with staph lugdunensis. On cefazolin, s/p OR 10/04/[address] Rosa for I&D. Discussed options with her for iv vs po, will order midline and 3 weeks ceftriaxone daily (stop 10/29/21), then plan on changing to doxy/keflex to complete course. ID followup in 2-3 weeks. Pt wants to go to infusion center daily for abx. Will follow, thank you, wrote rx. D/w correctional casework specialist. HPI Consult Data Date of Consult: 10/07/21 HPI Narrative HPI Narrative: VIKASH VIGIL, is a 76 F who presented 10/01 with about a month of progressive L middle finger pain, redness, swelling, and purulence. Has habit of picking her skin. Went to ED 09/14 here, given bactrim and augmentin, sx worsened, admitted here. Taken to OR 10/[address] Rosa for I&D. Now on cefazolin, feeling better. No fever, no n/v/d. Fully covid vaccinated. Full ROS performed and neg except as noted above. [facility] Medical History Abscess of left middle finger Acute osteomyelitis of left hand including fingers Cellulitis of left middle finger Hearing loss, left Hearing loss, right High cholesterol Hypertension Open bite of left middle finger with damage to nail Home Medications alendronate 70 mg PO QWEEK 09/14/21 [History Last Taken Unknown] amlodipine 5 mg PO QHS 09/14/21 [History Last Taken Unknown] atorvastatin 40 mg PO QHS 09/14/21 [History Last Taken Unknown] Vitamin D (with calcium) 5,000 units PO/SL DAILY 10/01/21 [History Last Taken Unknown] ceftriaxone 2 g IV DAILY #21 ea 10/07/21 [Rx Last Taken Unknown] Allergy/AdvReac Type Severity Reaction Status Date / Time No Known Allergies Allergy Verified 10/01/21 18:08 Family History Other CAD (coronary artery disease) Heart disease Surgical History H/O: hysterectomy Social History household members: spouse Smoking Status: Never smoker substance use type: does not use Physical Exam Const alert, oriented x3 and no apparent distress General Appearance: cooperative Exam Limitations: no limitations HEENT normocephalic and head/scalp atraumatic Eyes PERRL and EOMs intact bilaterally Neck supple and No nodes Resp normal air movement and clear to auscultation bilaterally Cardio regular rate and regular rhythm GI soft to palpation, non-tender and non-distended Extremity General Extremity: Negative for edema Skin no rashes or lesions noted Skin Narrative: Finger wrapped Neuro CN's II-XII intact bilaterally Lab / Micro Data Result Diagrams: 10/07/21 06:10 10/07/21 06:10 Labs: Laboratory Results - last 24 hr 10/07/21 06:10: WBC 6.5, RBC 3.80 L, Hgb 11.3 L, Hct 34.3 L, MCV 90.3, MCH 29.7, MCHC 32.9, RDW Std Deviation 43.7, RDW Coeff of Abdulaziz 13.2, Plt Count 327, MPV 9.5, Immature Gran % (Auto) 0.300, Neut % (Auto) 49.6, Lymph % (Auto) 32.1, [place] % (Auto) 11.1 H, Eos % (Auto) 6.1 H, Baso % (Auto) 0.8, Absolute Neuts (auto) 3.2, Absolute Lymphs (auto) 2.09, Nucleated RBC % 0 10/07/21 06:10: Sodium 138, Potassium 4.0, Chloride 109 H, Carbon Dioxide 26.0, Anion Gap 3 L, BUN 19 H, Creatinine 0.80, Estim Creat Clear Calc 46.41, Est GFR (MDRD) Af Amer 89, Est GFR (MDRD) Non-Af 74, BUN/Creatinine Ratio 23.7 H, Glucose 97, Calcium 9.3 Micro: Microbiology 10/04/21 14:01 Bone - Finger Gram Stain - Final 10/04/21 14:01 Bone - Finger Wound Culture - Final Staphylococcus aureus Staphylococcus lugdunensis 10/04/21 14:01 Bone - Finger Anaerobic Culture - Preliminary Checking for anaerobes, further studies to follow. 10/04/21 14:00 Tissue - Finger Gram Stain - Final 10/04/21 14:00 Tissue - Finger Wound Culture - Final Staphylococcus aureus 10/04/21 14:00 Tissue - Finger Anaerobic Culture - Preliminary Checking for anaerobes, further studies to follow.
--- NOTE | 2021-10-07 14:13 | PCM.DC.SUM ---
Providers Date of Admission: 10/01/21 Primary Care Physician: Dominique Oscar, JANET-Cynthia Consultations 10/01/21 21:28 Consult: Plastic Surgery Routine Consulting Provider: Shakeel Rosa Reason for Consult: Abscess of finger EMERGENT Consult: No Notified: Yes Date Notified: 10/02/21 Time Notified: 09:06 Method of Notification: Verbal 10/05/21 13:10 Consult: Infectious Disease Routine Consulting Provider: Solo Christian Reason for Consult: left middle finger osteomyelitis EMERGENT Consult: No Notified: Yes Date Notified: 10/07/21 Time Notified: 06:27 Method of Notification: Answering Service Reason For Visit: CELLULITIS Diagnosis Discharge Diagnosis (1) Osteomyelitis of finger of left hand: Status: Acute Code(s): M86.9 - Osteomyelitis, unspecified Medications at Discharge Home Medications alendronate 70 mg PO QWEEK 09/14/21 amlodipine 5 mg PO QHS 09/14/21 atorvastatin 40 mg PO QHS 09/14/21 Vitamin D (with calcium) 5,000 units PO/SL DAILY 10/01/21 ceftriaxone 2 g IV DAILY #21 ea 10/07/21 Hospital Course Operations None Procedures None Summary of Care Provided Minutes Spent on Discharge: 40 Hospital Course: Patient is a 76-year-old female with a past medical history significant for hyperlipidemia and hypertension. She was admitted through the ED on 10/01/2021 with a complaint of 1 month history of swelling of her left middle finger with associated erythema and soreness. She had been placed on outpatient antibiotics on September 14 2021 and did have some improvement after she completed the course. However his symptoms recurred patient went to see her PCP and she went see her PCP who did start her on antibiotics and ordered an x-ray of her finger. X-ray showed acute osteomyelitis of the distal phalanx of the middle finger so she was referred to the ED. She was admitted and managed for cute osteomyelitis and cellulitis with abscess of the left middle finger distal phalanx. Plastic surgery was consulted and she was started on IV broad-spectrum antibiotics. She had incision and drainage and excisional debridement of the infected left middle finger distal phalanx including the nailbed complex and also partial ostectomy of the distal phalanx of the left middle finger for osteomyelitis. Wound cultures grew strep and MSSA. She was started on IV cefazolin. ID was consulted and a midline was ordered and patient was discharged home on 3 weeks of IV ceftriaxone daily with a stop date of 10/29/2021 with plans to change to p.o. doxycycline and Keflex completes the course. Patient was to go to the infusion center daily for the antibiotics. She was discharged home on 10/07/2021 and is to follow-up with her primary care doctor, and plastic surgery as well as infectious disease. Patient was seen and examined prior to discharge. She felt well and had no active complaints. Review of systems is otherwise negative. Labs and vitals reviewed. Home medication reviewed and reconciled. Physical Exam Const alert, oriented x3 and no apparent distress General Appearance: cooperative, comfortable and well kempt Orientation / Consciousness: awake Exam Limitations: no limitations HEENT normocephalic, head/scalp atraumatic, hearing grossly normal bilaterally and moist oral mucous membranes Eyes PERRL and EOMs intact bilaterally Neck no lymphadenopathy and supple Resp normal respiratory effort, no retractions, no use of accessory muscles and clear to auscultation bilaterally Cardio regular rate, regular rhythm, S1 normal heart sound, S2 normal heart sound and no murmurs GI normal to inspection, nondistended, normoactive bowel sounds, soft to palpation, non-tender and non-distended Extremity Extremity Narrative: left middle finger wrapped in bandage Skin no rashes or lesions noted Skin Narrative: as under extremity Neuro oriented x3, CN's II-XII intact bilaterally and moves all extremities Sensorium / Orientation: awake and alert Psych affect normal Weight / BMI Weight Weight: 110 lb 1.017 oz Body Mass Index (BMI) 21.6 ABG / Lab / Microbiology Data Result Diagrams: 10/07/21 06:10 10/07/21 06:10 Laboratory: Laboratory Results - last 24 hr 10/07/21 06:10: WBC 6.5, RBC 3.80 L, Hgb 11.3 L, Hct 34.3 L, MCV 90.3, MCH 29.7, MCHC 32.9, RDW Std Deviation 43.7, RDW Coeff of Abdulaziz 13.2, Plt Count 327, MPV 9.5, Immature Gran % (Auto) 0.300, Neut % (Auto) 49.6, Lymph % (Auto) 32.1, [place] % (Auto) 11.1 H, Eos % (Auto) 6.1 H, Baso % (Auto) 0.8, Absolute Neuts (auto) 3.2, Absolute Lymphs (auto) 2.09, Nucleated RBC % 0 10/07/21 06:10: Sodium 138, Potassium 4.0, Chloride 109 H, Carbon Dioxide 26.0, Anion Gap 3 L, BUN 19 H, Creatinine 0.80, Estim Creat Clear Calc 46.41, Est GFR (MDRD) Af Amer 89, Est GFR (MDRD) Non-Af 74, BUN/Creatinine Ratio 23.7 H, Glucose 97, Calcium 9.3 Microbiology: Microbiology 10/04/21 14:01 Bone - Finger Gram Stain - Final 10/04/21 14:01 Bone - Finger Wound Culture - Final Staphylococcus aureus Staphylococcus lugdunensis 10/04/21 14:01 Bone - Finger Anaerobic Culture - Preliminary Checking for anaerobes, further studies to follow. 10/04/21 14:00 Tissue - Finger Gram Stain - Final 10/04/21 14:00 Tissue - Finger Wound Culture - Final Staphylococcus aureus 10/04/21 14:00 Tissue - Finger Anaerobic Culture - Preliminary Checking for anaerobes, further studies to follow. 10/01/21 18:22 Wound - Finger Gram Stain - Final 10/01/21 18:22 Wound - Finger Wound Culture - Final Streptococcus group C Staphylococcus aureus 10/03/21 Unknown Nasal Secretion SARS-CoV-2 Antigen (Rapid) - Final D/C Instructions Discharge Diet: Low fat / Low cholesterol Discharge Activity: Return to Normal Activity Weight Bearing Status: Weight bearing as tolerated Call your doctor if your incision/area has: Continuous Slow Oozing, Increased Pain/ Swelling, Increased Redness, Foul Smelling Discharge and Swelling at the incision site Call your doctor if you observe: Fever of 101 or Higher, Shortness of breath, Swelling in the ankles and Uncontrolled pain Meaningful Use Info Meaningful Use Diagnoses (Choose all that apply): None applicable Discharge Plan Admission Admit Date/Time: 10/01/21 20:27 Primary Reason for Your Visit: acute osteomyelitis of the left middle finger Attending Provider: Sofia Barraza Primary Care Provider: Dominique Oscar NP Consulting Providers: Shakeel Rosa ; Solo Christian Discharge Orders/Prescriptions Prescriptions: New ceftriaxone 2 gram recon soln 2 g IV DAILY Qty: 21 RF: 0 Discontinued amoxicillin-pot clavulanate 875-125 mg tablet 1 tab PO BID Qty: 20 RF: 0 Bactrim DS 1 tab PO/SL BID RF: 0 No Action atorvastatin 40 mg tablet 40 mg PO QHS RF: 0 alendronate 70 mg tablet 70 mg PO QWEEK RF: 0 amlodipine 5 mg tablet 5 mg PO QHS RF: 0 Vitamin D (with calcium) 5,000 units PO/SL DAILY RF: 0 Referrals / Follow Up: Shakeel Rosa MD [STAFF PHYSICIAN] - In 1 Week Solo Christian MD [STAFF PHYSICIAN] - Within 2 Weeks Dominique Oscar NP, TECHNICAL ACCOUNT REPRESENTATIVE-C [Primary Care Provider] - Within 2 Weeks Disposition Disposition (needs filled in before D/C Order can be placed): Home, Self Care Charges/Coding Visit Charges Inpatient E&M: 45004 Disch Hosp
--- NOTE | 2021-10-07 17:18 | PCM.PN.SRG ---
Subjective Subjective Postop #3 Patient is resting comfortably. Tolerated the dressing change well. Objective Data Objective Data Vital Signs: Vital Signs Temp Pulse Resp BP Pulse Ox 98.6 F 69 18 156/71 H 100 10/07/21 13:17 10/07/21 13:17 10/07/21 13:17 10/07/21 13:17 10/07/21 13:17 Oxygen Delivery Method Room Air Weight: 110 lb 1.017 oz Body Mass Index (BMI) 21.6 Intake & Output: Intake and Output for Last 24 Hours 10/05/21 10/06/21 10/07/21 23:59 23:59 23:59 Intake Total 1050 / 1050 1170 / 1170 160 / 160 Balance 1050 / 1050 1170 / 1170 160 / 160 Lab / Micro Data Attestation: I reviewed the patient's lab results. Result Diagrams: 10/07/21 06:10 10/07/21 06:10 Labs: Laboratory Results - last 24 hr 10/07/21 06:10: WBC 6.5, RBC 3.80 L, Hgb 11.3 L, Hct 34.3 L, MCV 90.3, MCH 29.7, MCHC 32.9, RDW Std Deviation 43.7, RDW Coeff of Abdulaziz 13.2, Plt Count 327, MPV 9.5, Immature Gran % (Auto) 0.300, Neut % (Auto) 49.6, Lymph % (Auto) 32.1, [place] % (Auto) 11.1 H, Eos % (Auto) 6.1 H, Baso % (Auto) 0.8, Absolute Neuts (auto) 3.2, Absolute Lymphs (auto) 2.09, Nucleated RBC % 0 10/07/21 06:10: Sodium 138, Potassium 4.0, Chloride 109 H, Carbon Dioxide 26.0, Anion Gap 3 L, BUN 19 H, Creatinine 0.80, Estim Creat Clear Calc 46.41, Est GFR (MDRD) Af Amer 89, Est GFR (MDRD) Non-Af 74, BUN/Creatinine Ratio 23.7 H, Glucose 97, Calcium 9.3 Micro: Microbiology 10/04/21 14:01 Bone - Finger Gram Stain - Final 10/04/21 14:01 Bone - Finger Wound Culture - Final Staphylococcus aureus Staphylococcus lugdunensis 10/04/21 14:01 Bone - Finger Anaerobic Culture - Preliminary Checking for anaerobes, further studies to follow. 10/04/21 14:00 Tissue - Finger Gram Stain - Final 10/04/21 14:00 Tissue - Finger Wound Culture - Final Staphylococcus aureus 10/04/21 14:00 Tissue - Finger Anaerobic Culture - Preliminary Checking for anaerobes, further studies to follow. 10/01/21 18:22 Wound - Finger Gram Stain - Final 10/01/21 18:22 Wound - Finger Wound Culture - Final Streptococcus group C Staphylococcus aureus 10/03/21 Unknown Nasal Secretion SARS-CoV-2 Antigen (Rapid) - Final Physical Exam Narrative PHYSICAL EXAMINATION General - Alert and Oriented HEENT - PERRL. EOMI. Neck - Supple and nontender. Abdomen - Soft and nondistended. Extremities - FROM. No axillary adenopathy. Radial pulses are palpable. On the left long finger, the operative dressing was removed. Wound is clean. No bleeding seen. Good granulation seen. Swelling much better. Cellulitis resolved. Wound redressed with Silver dressing. Neuro - CN II-XII grossly intact. Psych - Normal mood and affect. Assessment & Plan Assessment/Plan (1) Abscess of left middle finger: (2) Cellulitis of left middle finger: (3) Acute osteomyelitis of left hand including fingers: (4) Open bite of left middle finger with damage to nail: PLAN: Wound is clean with granulation tissue. Cellulitis resolved. Swelling much improved. She tolerated the Silver dressing change well. To come to the office three times per week for a Silver dressing change. Operative cultures showed Staphylococcus aureus and Staphylococcus lugdunensis in the bone and Staphylococcus aureus in the soft tissue. She had a preoperative culture that showed Streptococcus group C. Infectious Diseases recommended IV Ceftriaxone for 3 weeks followed by Keflex and Doxycycline. PICC line placed today. Wrote script for Percocet for pain (28 tabs). Followup Thursday10/09/21 for a Silver dressing change.
--- NOTE | 2021-10-07 17:21 | DCINST_ITS ---
Discharge Instructions Diet Discharge Diet: No restrictions and Low fat / Low cholesterol Activity Weight Bearing Status: Weight bearing as tolerated Lifting Restrictions: 10 lb weight lifting restriction left hand Keep extremity elevated above heart level: Left Arm Additional Activity Instructions:: Do not get left long finger wet Dressing / Incision Call your doctor if your incision/area has: Continuous Slow Oozing, Increased Pain/ Swelling, Increased Redness, Foul Smelling Discharge and Swelling at the incision site Call your doctor if you observe: Fever of 101 or Higher, Shortness of breath, Swelling in the ankles and Uncontrolled pain Change Dressing in: 2 days Cleanse incision/area with: Do not get Incision Wet Follow Up Care Please Follow Up With: Dr Rosa/Susan When: Thursday10/09/21 in office [facility], Outpatient [place], [address]. Come to office after your infusion. Test Results: Test results from this visit will be discussed in further detail at your follow-up appointment, if applicable. Discharge Plan Admission Admit Date/Time: 10/01/21 20:27 Primary Reason for Your Visit: acute osteomyelitis of the left middle finger Attending Provider: Sofia Barraza Primary Care Provider: Dominique Oscar NP Consulting Providers: Shakeel Rosa ; Solo Christian Discharge Orders/Prescriptions Prescriptions: New ceftriaxone 2 gram recon soln 2 g IV DAILY Qty: 21 RF: 0 oxycodone-acetaminophen [Percocet] 5-325 mg tablet 1 tab PO Q6H PRN (Reason: pain (scale score 7-10)) 7 Days Qty: 28 RF: 0 Discontinued amoxicillin-pot clavulanate 875-125 mg tablet 1 tab PO BID Qty: 20 RF: 0 Bactrim DS 1 tab PO/SL BID RF: 0 No Action atorvastatin 40 mg tablet 40 mg PO QHS RF: 0 alendronate 70 mg tablet 70 mg PO QWEEK RF: 0 amlodipine 5 mg tablet 5 mg PO QHS RF: 0 Vitamin D (with calcium) 5,000 units PO/SL DAILY RF: 0 Referrals / Follow Up: Shakeel Rosa MD [STAFF PHYSICIAN] - In 1 Week Solo Christian MD [STAFF PHYSICIAN] - Within 2 Weeks Dominique Oscar NP, VISITOR SERVICES ASSISTANT-C [Primary Care Provider] - Within 2 Weeks Disposition Disposition (needs filled in before D/C Order can be placed): Home, Self Care
[2021-10-07 17:55] VITALS: BP 143/86; PULSE 94; RESP 16; TEMP 36.5; O2SAT 98
== END 2021-10-07 18:15 | disposition home or self-care (01) | DRG 516 ==
LOC: ED 20:24 → MS3 20:37
PROVIDERS: Surgery; Admitting Provider Hospitalist; Emergency Provider Emergency Medicine; PCP Registered Nurse; Visit Provider Student in an Organized Health Care Education/Training Program
PROC: 0PBV0ZZ Excision of Left Finger Phalanx, Open Approach (ICD-10-PCS; principal; 2021-10-04 12:45)
DX: M86.142 Other acute osteomyelitis, left hand (principal); L02.512 Cutaneous abscess of left hand; B95.4 Other streptococcus as the cause of diseases classified elsewhere; E78.00 Pure hypercholesterolemia, unspecified; I10 Essential (primary) hypertension; B95.61 Methicillin susceptible Staphylococcus aureus infection as the cause of diseases classified elsewhere; B95.7 Other staphylococcus as the cause of diseases classified elsewhere; S61.353A Open bite of left middle finger with damage to nail, initial encounter; L03.012 Cellulitis of left finger; X58.XXXA Exposure to other specified factors, initial encounter; Z79.83 Long term (current) use of bisphosphonates; R73.9 Hyperglycemia, unspecified; H91.93 Unspecified hearing loss, bilateral; Z79.899 Other long term (current) drug therapy
CPT/HCPCS: 36415; 73130; 73140; 80048; 80053; 80202; 83605; 85025; 85652; 86038; 86140; 86225; 86235; 87070; 87075; 87077; 87102; 87176; 87186; 87205; 87206; 87426; 88305; 88311; 93005; 97802; 99284; J7050; A4216; J0295; J0696; J2405

== ENCOUNTER 2021-10-08 12:57 | Outpatient (CLI) | payer MEDICARE, MEDICAID, SELFPAY ==
[2021-10-08 13:09] VITALS: BP 127/66; PULSE 80; RESP 12; TEMP 36.7; O2SAT 99; BMI 22.0
[2021-10-08 14:05] VITALS: BP 108/63; PULSE 56; RESP 12; TEMP 36.8; O2SAT 99
== END 2021-10-08 23:59 | disposition home or self-care (01) ==
LOC: MEDOUTP 12:58
PROVIDERS: PCP Registered Nurse; Referring Provider Internal Medicine Infectious Disease; Visit Provider Internal Medicine Infectious Disease
DX: M86.9 Osteomyelitis, unspecified (principal); B95.61 Methicillin susceptible Staphylococcus aureus infection as the cause of diseases classified elsewhere
CPT/HCPCS: 96365; J0696

== ENCOUNTER 2021-10-09 13:14 | Outpatient (CLI) | payer MEDICARE, MEDICAID, SELFPAY ==
[2021-10-09 13:28] VITALS: BP 118/62; PULSE 61; RESP 12; TEMP 36.6; O2SAT 98; BMI 22.0
[2021-10-09 14:33] VITALS: BP 118/53; PULSE 67; RESP 16; TEMP 36.6; O2SAT 98
== END 2021-10-09 23:59 | disposition home or self-care (01) ==
LOC: MEDOUTP 13:15
PROVIDERS: PCP Registered Nurse; Referring Provider Internal Medicine Infectious Disease; Visit Provider Internal Medicine Infectious Disease
DX: M86.9 Osteomyelitis, unspecified (principal); B95.61 Methicillin susceptible Staphylococcus aureus infection as the cause of diseases classified elsewhere
CPT/HCPCS: 96365; J7050; A4216; J0696

== ENCOUNTER 2021-10-10 12:58 | Outpatient (CLI) | payer MEDICARE, MEDICAID, SELFPAY ==
[2021-10-10 13:05] VITALS: BP 137/61; PULSE 61; RESP 16; TEMP 36.1
== END 2021-10-10 23:59 | disposition home or self-care (01) ==
LOC: MEDOUTP 12:58
PROVIDERS: PCP Registered Nurse; Referring Provider Internal Medicine Infectious Disease; Visit Provider Internal Medicine Infectious Disease
DX: M86.9 Osteomyelitis, unspecified (principal); B95.61 Methicillin susceptible Staphylococcus aureus infection as the cause of diseases classified elsewhere
CPT/HCPCS: 96365; J7050; A4216; J0696

== ENCOUNTER 2021-10-11 12:22 | Outpatient (CLI) | payer MEDICARE, MEDICAID, SELFPAY ==
[2021-10-11 12:27] VITALS: BP 141/82; PULSE 71; RESP 16; TEMP 36.6; O2SAT 98; BMI 22.0
[2021-10-11 13:29] VITALS: BP 117/70; PULSE 56; RESP 16; O2SAT 99
== END 2021-10-11 23:59 | disposition home or self-care (01) ==
LOC: MEDOUTP 12:22
PROVIDERS: PCP Registered Nurse; Referring Provider Internal Medicine Infectious Disease; Visit Provider Internal Medicine Infectious Disease
DX: M86.9 Osteomyelitis, unspecified (principal); B95.61 Methicillin susceptible Staphylococcus aureus infection as the cause of diseases classified elsewhere
CPT/HCPCS: 96365; J7050; A4216; J0696

== ENCOUNTER 2021-10-12 12:28 | Outpatient (CLI) | payer MEDICARE, MEDICAID, SELFPAY | END 2021-10-12 23:59 | disposition home or self-care (01) | LOC: MEDOUTP 12:30 → MS3 10-16 20:02 | PROVIDERS: PCP Registered Nurse; Visit Provider Internal Medicine Infectious Disease | DX: M86.9 Osteomyelitis, unspecified (principal); B95.61 Methicillin susceptible Staphylococcus aureus infection as the cause of diseases classified elsewhere ==

== ENCOUNTER → 2021-10-12 | Outpatient (CLI) | payer MEDICARE, MEDICAID, SELFPAY ==
[2021-10-12 12:32] VITALS: BP 131/71; PULSE 68; RESP 18; O2SAT 100
[2021-10-12] MEDS: 0.9% Saline Lock 10 ML Syringe IV (13:41)
== END | disposition home or self-care (01) ==
LOC: MEDOUTP 10-22 11:38
PROVIDERS: PCP Registered Nurse; Referring Provider Internal Medicine Infectious Disease; Visit Provider Internal Medicine Infectious Disease
DX: M86.9 Osteomyelitis, unspecified (principal); B95.61 Methicillin susceptible Staphylococcus aureus infection as the cause of diseases classified elsewhere
CPT/HCPCS: 96365; J7050; A4216; J0696

== ENCOUNTER 2021-10-13 13:01 | Outpatient (CLI) | payer MEDICARE, MEDICAID, SELFPAY ==
[2021-10-13] MEDS: 0.9% Saline Lock 10 ML Syringe IV ×2 (13:09→14:03)
[2021-10-13 13:14] VITALS: BP 116/62; PULSE 58; RESP 18; TEMP 36.4; O2SAT 99
== END 2021-10-13 23:59 | disposition home or self-care (01) ==
LOC: MEDOUTP 13:01 → MS3 13:02
PROVIDERS: PCP Registered Nurse; Referring Provider Internal Medicine Infectious Disease; Visit Provider Internal Medicine Infectious Disease
DX: M86.9 Osteomyelitis, unspecified (principal); B95.61 Methicillin susceptible Staphylococcus aureus infection as the cause of diseases classified elsewhere
CPT/HCPCS: 96365; J7050; A4216; J0696

== ENCOUNTER 2021-10-14 12:23 | Outpatient (CLI) | payer MEDICARE, MEDICAID, SELFPAY ==
[2021-10-14 12:29] VITALS: BP 134/73; PULSE 79; RESP 16; TEMP 35.8; O2SAT 98; BMI 22.2
[2021-10-14 13:38] VITALS: BP 121/68; PULSE 52; RESP 12; TEMP 35.9; O2SAT 97
== END 2021-10-14 23:59 | disposition home or self-care (01) ==
LOC: MEDOUTP 12:23
PROVIDERS: PCP Registered Nurse; Referring Provider Internal Medicine Infectious Disease; Visit Provider Internal Medicine Infectious Disease
DX: M86.9 Osteomyelitis, unspecified (principal); B95.61 Methicillin susceptible Staphylococcus aureus infection as the cause of diseases classified elsewhere
CPT/HCPCS: 96365; J7050; A4216; J0696

== ENCOUNTER 2021-10-15 12:18 | Outpatient (CLI) | payer MEDICARE, MEDICAID, SELFPAY ==
[2021-10-15 12:24] VITALS: BP 140/72; PULSE 58; RESP 16; TEMP 35.7; O2SAT 99
[2021-10-15 13:25] VITALS: BP 125/68; PULSE 50; RESP 16; TEMP 35.8; O2SAT 97
== END 2021-10-15 23:59 | disposition home or self-care (01) ==
LOC: MEDOUTP 12:18
PROVIDERS: PCP Registered Nurse; Referring Provider Internal Medicine Infectious Disease; Visit Provider Internal Medicine Infectious Disease
DX: M86.9 Osteomyelitis, unspecified (principal); B95.61 Methicillin susceptible Staphylococcus aureus infection as the cause of diseases classified elsewhere
CPT/HCPCS: 96365; J7050; A4216; J0696

== ENCOUNTER 2021-10-16 12:30 | Outpatient (CLI) | payer MEDICARE, MEDICAID, SELFPAY ==
[2021-10-16 13:46] VITALS: BP 111/58; PULSE 56; RESP 12; TEMP 36.4; O2SAT 96
== END 2021-10-16 23:59 | disposition home or self-care (01) ==
LOC: MEDOUTP 12:30
PROVIDERS: PCP Registered Nurse; Referring Provider Internal Medicine Infectious Disease; Visit Provider Internal Medicine Infectious Disease
DX: M86.9 Osteomyelitis, unspecified (principal); B95.61 Methicillin susceptible Staphylococcus aureus infection as the cause of diseases classified elsewhere
CPT/HCPCS: 96365; J7050; A4216; J0696

== ENCOUNTER 2021-10-17 12:22 | Outpatient (CLI) | payer MEDICARE, MEDICAID, SELFPAY ==
[2021-10-17 12:37] VITALS: BP 108/52; PULSE 55; RESP 12; TEMP 36.7; O2SAT 96; BMI 22.2
[2021-10-17 13:41] VITALS: BP 126/69; PULSE 49; RESP 16; TEMP 35.9; O2SAT 97
== END 2021-10-17 23:59 | disposition home or self-care (01) ==
LOC: MEDOUTP 12:23
PROVIDERS: PCP Registered Nurse; Referring Provider Internal Medicine Infectious Disease; Visit Provider Internal Medicine Infectious Disease
DX: M86.9 Osteomyelitis, unspecified (principal); B95.61 Methicillin susceptible Staphylococcus aureus infection as the cause of diseases classified elsewhere
CPT/HCPCS: 96365; J7050; A4216; J0696

== ENCOUNTER 2021-10-18 11:46 | Outpatient (CLI) | payer MEDICARE, MEDICAID, SELFPAY ==
[2021-10-18 11:57] VITALS: BP 121/60; PULSE 57; RESP 16; O2SAT 97
[2021-10-18 12:53] VITALS: BP 117/73; PULSE 51; RESP 16; O2SAT 98
== END 2021-10-18 23:59 | disposition home or self-care (01) ==
LOC: MEDOUTP 11:46
PROVIDERS: PCP Registered Nurse; Referring Provider Internal Medicine Infectious Disease; Visit Provider Internal Medicine Infectious Disease
DX: M86.9 Osteomyelitis, unspecified (principal)
CPT/HCPCS: 96365; J7050; A4216; J0696

== ENCOUNTER 2021-10-19 11:09 | Outpatient (CLI) | payer MEDICARE, MEDICAID, SELFPAY ==
[2021-10-19 11:19] VITALS: BP 121/63; PULSE 59; RESP 18; TEMP 36.3; O2SAT 100
[2021-10-19] MEDS: 0.9% Saline Lock 10 ML Syringe IV ×2 (11:27→12:14)
== END 2021-10-19 23:59 | disposition home or self-care (01) ==
LOC: MEDOUTP 11:10 → MS3 11:10
PROVIDERS: PCP Registered Nurse; Referring Provider Internal Medicine Infectious Disease; Visit Provider Internal Medicine Infectious Disease
DX: M86.9 Osteomyelitis, unspecified (principal); B95.61 Methicillin susceptible Staphylococcus aureus infection as the cause of diseases classified elsewhere
CPT/HCPCS: 96365; J7050; A4216; J0696

== ENCOUNTER 2021-10-20 12:33 | Outpatient (CLI) | payer MEDICARE, MEDICAID, SELFPAY ==
[2021-10-20 12:43] VITALS: BP 117/65; PULSE 55; RESP 18; TEMP 36.6; O2SAT 98
[2021-10-20] MEDS: 0.9% Saline Lock 10 ML Syringe IV ×2 (12:45→14:09)
[2021-10-20 14:10] VITALS: BP 124/63; PULSE 50; RESP 18; TEMP 36.3; O2SAT 98
== END 2021-10-20 23:59 | disposition home or self-care (01) ==
LOC: MEDOUTP 12:33 → MS3 12:34
PROVIDERS: PCP Registered Nurse; Referring Provider Internal Medicine Infectious Disease; Visit Provider Internal Medicine Infectious Disease
DX: M86.9 Osteomyelitis, unspecified (principal); B95.61 Methicillin susceptible Staphylococcus aureus infection as the cause of diseases classified elsewhere
CPT/HCPCS: 96365; J7050; A4216; J0696

== ENCOUNTER 2021-10-21 12:28 | Outpatient (CLI) | payer MEDICARE, MEDICAID, SELFPAY ==
[2021-10-21 12:36] VITALS: BP 130/68; PULSE 70; RESP 12; TEMP 36.4; O2SAT 98; BMI 22.2
[2021-10-21 13:43] VITALS: BP 114/57; PULSE 56; RESP 16; O2SAT 99
== END 2021-10-21 23:59 | disposition home or self-care (01) ==
LOC: MEDOUTP 12:28
PROVIDERS: PCP Registered Nurse; Referring Provider Internal Medicine Infectious Disease; Visit Provider Internal Medicine Infectious Disease
DX: M86.9 Osteomyelitis, unspecified (principal); B95.61 Methicillin susceptible Staphylococcus aureus infection as the cause of diseases classified elsewhere
CPT/HCPCS: 96365; A4216; J0696

== ENCOUNTER 2021-10-22 12:30 | Outpatient (CLI) | payer MEDICARE, MEDICAID, SELFPAY ==
[2021-10-22 12:35] VITALS: BP 122/66; PULSE 67; RESP 16; TEMP 36.1; O2SAT 98; BMI 22.2
[2021-10-22 13:52] VITALS: BP 116/66; PULSE 52; RESP 16; TEMP 35.9; O2SAT 98
== END 2021-10-22 23:59 | disposition home or self-care (01) ==
LOC: MEDOUTP 12:30
PROVIDERS: PCP Registered Nurse; Referring Provider Internal Medicine Infectious Disease; Visit Provider Internal Medicine Infectious Disease
DX: M86.9 Osteomyelitis, unspecified (principal); B95.61 Methicillin susceptible Staphylococcus aureus infection as the cause of diseases classified elsewhere
CPT/HCPCS: 96365; J7050; A4216; J0696

== ENCOUNTER 2021-10-23 12:34 | Outpatient (CLI) | payer MEDICARE, MEDICAID, SELFPAY ==
[2021-10-23 12:53] VITALS: BP 134/62; PULSE 60; RESP 16; TEMP 36.6; O2SAT 98
[2021-10-23 13:45] VITALS: BP 133/64; PULSE 57; RESP 16; TEMP 36.3; O2SAT 98
== END 2021-10-23 23:59 | disposition home or self-care (01) ==
LOC: MEDOUTP 12:34
PROVIDERS: PCP Registered Nurse; Referring Provider Internal Medicine Infectious Disease; Visit Provider Internal Medicine Infectious Disease
DX: M86.9 Osteomyelitis, unspecified (principal); B95.61 Methicillin susceptible Staphylococcus aureus infection as the cause of diseases classified elsewhere
CPT/HCPCS: 96365; A4216; J0696

== ENCOUNTER 2021-10-24 12:28 | Outpatient (CLI) | payer MEDICARE, MEDICAID, SELFPAY ==
[2021-10-24 12:41] VITALS: BP 108/54; PULSE 58; RESP 16; O2SAT 98
[2021-10-24 13:32] VITALS: BP 121/62; PULSE 52; TEMP 36.2
== END 2021-10-24 23:59 | disposition home or self-care (01) ==
LOC: MEDOUTP 12:28
PROVIDERS: PCP Registered Nurse; Referring Provider Internal Medicine Infectious Disease; Visit Provider Internal Medicine Infectious Disease
DX: M86.9 Osteomyelitis, unspecified (principal); B95.61 Methicillin susceptible Staphylococcus aureus infection as the cause of diseases classified elsewhere
CPT/HCPCS: 96365; J7050; A4216; J0696

== ENCOUNTER 2021-10-25 12:23 | Outpatient (CLI) | payer MEDICARE, MEDICAID, SELFPAY ==
[2021-10-25 12:33] VITALS: BP 138/61; PULSE 60; RESP 16; TEMP 35.8; O2SAT 100
[2021-10-25 13:39] VITALS: BP 116/85; PULSE 55; RESP 16
== END 2021-10-25 23:59 | disposition home or self-care (01) ==
LOC: MEDOUTP 12:23
PROVIDERS: PCP Registered Nurse; Referring Provider Internal Medicine Infectious Disease; Visit Provider Internal Medicine Infectious Disease
DX: M86.9 Osteomyelitis, unspecified (principal); B95.61 Methicillin susceptible Staphylococcus aureus infection as the cause of diseases classified elsewhere
CPT/HCPCS: 96365; J7050; A4216; J0696

== ENCOUNTER 2021-10-26 12:30 | Outpatient (CLI) | payer MEDICARE, MEDICAID, SELFPAY ==
[2021-10-26] MEDS: 0.9% Saline Lock 10 ML Syringe IV (13:39)
== END 2021-10-26 23:59 | disposition home or self-care (01) ==
LOC: MEDOUTP 12:30 → MS3 12:31
PROVIDERS: PCP Registered Nurse; Referring Provider Internal Medicine Infectious Disease; Visit Provider Internal Medicine Infectious Disease
DX: M86.9 Osteomyelitis, unspecified (principal); B95.61 Methicillin susceptible Staphylococcus aureus infection as the cause of diseases classified elsewhere
CPT/HCPCS: 96365; A4216; J0696

== ENCOUNTER 2021-10-27 12:39 | Outpatient (CLI) | payer MEDICARE, MEDICAID, SELFPAY ==
[2021-10-27] MEDS: 0.9% Saline Lock 10 ML Syringe IV ×2 (12:50→13:47)
== END 2021-10-27 23:59 | disposition home or self-care (01) ==
LOC: MEDOUTP 12:39 → MS3 12:40
PROVIDERS: PCP Registered Nurse; Referring Provider Internal Medicine Infectious Disease; Visit Provider Internal Medicine Infectious Disease
DX: M86.9 Osteomyelitis, unspecified (principal); B95.61 Methicillin susceptible Staphylococcus aureus infection as the cause of diseases classified elsewhere
CPT/HCPCS: 96365; J7050; A4216; J0696

== ENCOUNTER 2021-10-28 12:52 | Outpatient (CLI) | payer MEDICARE, MEDICAID, SELFPAY ==
[2021-10-28 12:59] VITALS: BP 139/68; PULSE 72; RESP 16; TEMP 36.6; O2SAT 98; BMI 22.2
[2021-10-28 14:09] VITALS: BP 151/61; PULSE 58; RESP 16; O2SAT 98
== END 2021-10-28 23:59 | disposition home or self-care (01) ==
LOC: MEDOUTP 12:52
PROVIDERS: PCP Registered Nurse; Referring Provider Internal Medicine Infectious Disease; Visit Provider Internal Medicine Infectious Disease
DX: M86.9 Osteomyelitis, unspecified (principal); B95.61 Methicillin susceptible Staphylococcus aureus infection as the cause of diseases classified elsewhere
CPT/HCPCS: 96365; J7050; A4216; J0696

== ENCOUNTER 2021-10-29 12:59 | Outpatient (CLI) | payer MEDICARE, MEDICAID, SELFPAY ==
[2021-10-29 13:08] VITALS: BP 153/66; PULSE 67; RESP 16; TEMP 36.3; O2SAT 98; BMI 22.2
[2021-10-29 13:53] LABS: Hematocrit 33.5 % (37-47); Hemoglobin 10.8 g/dL (12.0-15.0); Mean Corp Hgb Conc 32.2 g/dL (32-36); Mean Corpuscular Hgb 28.7 pg (27.0-32.0); Mean Corpuscular Volume 89.1 fL (81-99); Mean Platelet Vol. 9.2 fl (6.2-12.0); Platelet Count 334 K/mm3 (150-450); RBC Distribution Width CV 13.4 % (11.6-14.6); RBC Distribution Width SD 44.2 fl (35.1-43.9); Red Blood Count 3.76 M/mm3 (4.2-5.4); White Blood Count 5.1 K/mm3 (4.4-11.0)
[2021-10-29 13:55] LABS: Erythrocyte Sedimentation Rate 17 mm/hr (0-30)
[2021-10-29 14:05] LABS: Anion Gap 6 (5-15); BUN 17 mg/dL (7-18); BUN/Creat Ratio 19.6 RATIO (10-20); Calcium,Total 9.1 mg/dL (8.5-10.1); Chloride 110 mmol/L (98-107); Creatinine, Serum 0.87 mg/dL (0.55-1.02); EST Glomerular Filtration Rate 67 mL/min (>60); Est Glom Filt Rate - Afr Amer 81 mL/min (>60); Estimated Creatinine Clearance 42.65 ml/min; Glucose 108 mg/dL (74-106); Potassium 3.5 mmol/L (3.5-5.1); Sodium Level 142 mmol/L (136-145)
[2021-10-29 14:41] VITALS: BP 143/66; PULSE 61; RESP 16; TEMP 35.9; O2SAT 99
[2021-10-29 17:11] LABS: AST(SGOT) 32 U/L (15-37); Alanine Aminotransfer ALT/SGPT 36 U/L (13-56); Albumin, Serum 3.6 g/dL (3.2-5.0); Alkaline Phosphatase 77 U/L (45-117); Bilirubin, Direct 0.11 mg/dL (0.00-0.30); Globulin 3.6 g/dL (2.2-4.2); Protein, Total 7.2 g/dL (6.4-8.2)
== END 2021-10-29 23:59 | disposition home or self-care (01) ==
LOC: MEDOUTP 12:59
PROVIDERS: Nurse Practitioner Family; PCP Registered Nurse; Referring Provider Internal Medicine Infectious Disease; Visit Provider Internal Medicine Infectious Disease
DX: M86.9 Osteomyelitis, unspecified (principal); B95.61 Methicillin susceptible Staphylococcus aureus infection as the cause of diseases classified elsewhere
CPT/HCPCS: 96365; 36592; 80048; 80076; 85027; 85652; A4216; J0696

== ENCOUNTER 2021-10-31 09:34 | Outpatient (CLI) | payer MEDICARE, MEDICAID, SELFPAY ==
[2021-10-31 09:48] VITALS: BP 128/56; PULSE 72; RESP 12; TEMP 35.8; O2SAT 100; BMI 22.2
== END 2021-10-31 23:59 | disposition home or self-care (01) ==
LOC: MEDOUTP 09:35
PROVIDERS: PCP Registered Nurse; Referring Provider Internal Medicine Infectious Disease; Visit Provider Internal Medicine Infectious Disease
DX: Z45.2 Encounter for adjustment and management of vascular access device (principal)

== ENCOUNTER → 2021-11-20 | Outpatient (CLI) | payer MEDICARE, MEDICAID, SELFPAY ==
[2021-11-20 11:32] LABS: AST(SGOT) 58 U/L (15-37); Alanine Aminotransfer ALT/SGPT 72 U/L (13-56); Albumin, Serum 4.1 g/dL (3.2-5.0); Alkaline Phosphatase 95 U/L (45-117); Anion Gap 7 (5-15); BUN 15 mg/dL (7-18); BUN/Creat Ratio 15.5 RATIO (10-20); Calcium,Total 9.2 mg/dL (8.5-10.1); Chloride 105 mmol/L (98-107); Creatinine, Serum 0.96 mg/dL (0.55-1.02); EST Glomerular Filtration Rate 59 mL/min (>60); Est Glom Filt Rate - Afr Amer 72 mL/min (>60); Glucose 112 mg/dL (74-106); Potassium 3.3 mmol/L (3.5-5.1); Protein, Total 8.1 g/dL (6.4-8.2); Sodium Level 140 mmol/L (136-145)
== END | disposition home or self-care (01) ==
LOC: PAVLAB 10:55
PROVIDERS: PCP Registered Nurse; Referring Provider Nurse Practitioner Family; Visit Provider Nurse Practitioner Family
DX: S61.353A Open bite of left middle finger with damage to nail, initial encounter (principal); M86.142 Other acute osteomyelitis, left hand; X58.XXXA Exposure to other specified factors, initial encounter; L02.512 Cutaneous abscess of left hand; B36.9 Superficial mycosis, unspecified
CPT/HCPCS: 36415; 80053

== ENCOUNTER → 2021-12-03 | Outpatient (CLI) | payer MEDICARE, MEDICAID, SELFPAY ==
[2021-12-03 11:41] LABS: Anion Gap 6 (5-15); BUN 22 mg/dL (7-18); BUN/Creat Ratio 19.6 RATIO (10-20); Calcium,Total 9.4 mg/dL (8.5-10.1); Chloride 108 mmol/L (98-107); Creatinine, Serum 1.12 mg/dL (0.55-1.02); EST Glomerular Filtration Rate 50 mL/min (>60); Est Glom Filt Rate - Afr Amer 61 mL/min (>60); Glucose 111 mg/dL (74-106); Potassium 3.7 mmol/L (3.5-5.1); Sodium Level 142 mmol/L (136-145)
== END | disposition home or self-care (01) ==
LOC: PAVLAB 10:51
PROVIDERS: PCP Registered Nurse; Referring Provider Nurse Practitioner Family; Visit Provider Nurse Practitioner Family
DX: M86.142 Other acute osteomyelitis, left hand (principal); S61.353A Open bite of left middle finger with damage to nail, initial encounter; B36.9 Superficial mycosis, unspecified; Z98.890 Other specified postprocedural states
CPT/HCPCS: 36415; 80048

== ENCOUNTER → 2021-12-10 | Outpatient (CLI) | payer MEDICARE, MEDICAID, SELFPAY ==
[2021-12-10 11:10] LABS: AST(SGOT) 54 U/L (15-37); Alanine Aminotransfer ALT/SGPT 68 U/L (13-56); Albumin, Serum 3.9 g/dL (3.2-5.0); Alkaline Phosphatase 105 U/L (45-117); Bilirubin, Direct 0.12 mg/dL (0.00-0.30); Globulin 3.9 g/dL (2.2-4.2); Protein, Total 7.8 g/dL (6.4-8.2)
== END | disposition home or self-care (01) ==
LOC: PAVLAB 10:22
PROVIDERS: PCP Registered Nurse; Referring Provider Nurse Practitioner Family; Visit Provider Nurse Practitioner Family
DX: S61.353A Open bite of left middle finger with damage to nail, initial encounter (principal); M86.142 Other acute osteomyelitis, left hand; X58.XXXA Exposure to other specified factors, initial encounter; L02.512 Cutaneous abscess of left hand; L03.012 Cellulitis of left finger; B36.9 Superficial mycosis, unspecified; Z98.890 Other specified postprocedural states
CPT/HCPCS: 36415; 80076

== ENCOUNTER → 2022-02-04 | Outpatient (CLI) | payer MEDICARE, MEDICAID, SELFPAY ==
[2022-02-04 12:34] LABS: AST(SGOT) 33 U/L (15-37); Alanine Aminotransfer ALT/SGPT 33 U/L (13-56); Albumin, Serum 3.7 g/dL (3.2-5.0); Alkaline Phosphatase 72 U/L (45-117); Anion Gap 6 (5-15); BUN 19 mg/dL (7-18); BUN/Creat Ratio 18.8 RATIO (10-20); Calcium,Total 9.4 mg/dL (8.5-10.1); Chloride 105 mmol/L (98-107); Creatinine, Serum 1.01 mg/dL (0.55-1.02); EST Glomerular Filtration Rate 56 mL/min (>60); Est Glom Filt Rate - Afr Amer 68 mL/min (>60); Globulin 3.6 g/dL (2.2-4.2); Glucose 100 mg/dL (74-106); Protein, Total 7.3 g/dL (6.4-8.2); Sodium Level 138 mmol/L (136-145)
[2022-02-04 12:36] LABS: Vitamin B12 300 pg/mL (211-911); Vitamin D,25 Hydroxy 69.3 ng/mL
[2022-02-04 12:37] LABS: Hemoglobin A1c 5.9 % (3.8-5.6)
== END | disposition home or self-care (01) ==
LOC: MFPLAB 10:43
PROVIDERS: PCP Registered Nurse; Visit Provider Family Medicine
DX: R94.5 Abnormal results of liver function studies (principal); D64.9 Anemia, unspecified; Q78.2 Osteopetrosis; R73.01 Impaired fasting glucose
CPT/HCPCS: 36415; 80053; 82306; 82607; 83036

== ENCOUNTER 2022-03-05 11:05 | Outpatient (CLI) | payer MEDICARE, MEDICAID, SELFPAY ==
--- NOTE | 2022-03-05 11:07 | VDUE_ITS ---
Reason For Study: Redness and swelling Right Proximal Right jugular vein is spontaneous, widely patent, phasic, with no intraluminal echogenicity noted. Right subclavian vein is spontaneous, widely patent, phasic, with no intraluminal echogenicity noted. Right Lower Arm Right radial vein is compressible. Right ulnar vein is compressible. Right Arm Right axillary vein is spontaneous, patent, phasic, competent, compressible and demonstrates augmentation. Right brachial vein is compressible. Right cephalic vein is compressible. Right basilic vein is compressible. Patient Safety Preliminary report sent to [facility]. VL/Venous Duplex US, Unilateral Interpretation Summary No evidence for acute deep venous thrombosis[right] upper extremity with patent and compressible cephalic and basilic veins. Unusual cylindrical structure involving the right b iceps muscle of undetermined etiology. Clinical correlation or additional imaging would be appr opriate. Ordering Physician: Desirae Guaman Referring Physician: Dominique Oscar Performed By: Barbara Jean RVT ?
== END 2022-03-05 23:59 | disposition home or self-care (01) ==
LOC: CVS 11:07
PROVIDERS: PCP Registered Nurse; Referring Provider Family Medicine; Visit Provider Family Medicine
DX: M79.89 Other specified soft tissue disorders (principal)
CPT/HCPCS: 93971

== ENCOUNTER → 2022-03-25 | Outpatient (CLI) | payer MEDICARE, MEDICAID, SELFPAY ==
--- NOTE | 2022-03-25 08:29 | CT_ITS ---
STUDY: CT RIGHT SHOULDER/UPPER ARM WITH CONTRAST REASON FOR EXAM: Redness and swelling of upper arm, previous bruising in right humeral area. TECHNIQUE: The patient was scanned in a multi detector CT scanner. High resolution transaxial imaging was performed with intravenous administration of 100 mL of Isovue-300. Sagittal and coronal images were reconstructed. Individualized dose optimization techniques were used for this CT. COMPARISON: None. FINDINGS: There is a glenohumeral joint effusion with mild contrast enhancement of the joint capsule (coronal reconstructions 30-40). There is fluid in the bicipital tendon sheath with mild contrast enhancement (axial images 24-44) extending to the proximal bicipital musculotendinous junction (axial images 47-57) with a fluid collection measuring approximately 1.5 x 2.5 cm (transverse x length). Normal glenoid rim, neck and visualized scapula. There is very mild calcific tendinitis (coronal reconstructions 40-42). Normal visualized lateral clavicle. There is acromioclavicular arthrosis (coronal reconstruction 36). There is a Type II morphology (curved), with a neutral orientation. Normal humerus. Unremarkable elbow. CT/Extremity Upper WITH Contrast IMPRESSION: Glenohumeral joint effusion with mild contrast enhancement of the joint capsule, fluid in the bicipital tendon sheath with mild contrast enhancement of the sheath, and a fluid collection at the biceps musculotendinous junction, most likely representing a retracted tear of the long biceps tendon. If there is clinical suspicion of septic arthritis of the glenohumeral articulation/abscess of the proximal biceps musculotendinous junction, then aspiration should be considered. Very mild calcific tendinitis. Acromioclavicular arthrosis. Electronically Signed: Kirby Aldridge MD at 11:47 EDT ,
[2022-03-25 09:01] LABS: CREATININE FINGERSTICK < 0.9 mg/dL (0.55-1.02); EGFR FINGERSTICK > 60.0000 mL/min (>60)
== END | disposition home or self-care (01) ==
LOC: CT 08:19
PROVIDERS: PCP Registered Nurse; Referring Provider Family Medicine; Visit Provider Family Medicine
DX: M79.89 Other specified soft tissue disorders (principal)
CPT/HCPCS: 73201; Q9967

== ENCOUNTER → 2022-04-15 | Outpatient (CLI) | payer MEDICARE, MEDICAID, SELFPAY ==
--- NOTE | 2022-04-15 08:49 | BD_ITS ---
STUDY: DUAL ENERGY X-RAY ABSORPTIOMETRY / DXA REASON FOR EXAM: Female, 77 years old. M810. The patient is postmenopausal. TECHNIQUE: Bone Mineral Density (BMD) measurements of lumbar spine and bilateral hips were obtained. COMPARISON: Comparison is made with prior study 04/12/2020. FINDINGS: Lumbar Spine (L1-L4): g/cm2 (0.933) / T-score (-0.8) / Z-score (1.7) Findings are suggestive of normal bone density with a low fracture risk. Left Femur Total: g/cm2 (0.653) / T-score (-2.4) / Z-score (-0.4) Left Femoral Neck: g/cm2 (0.518) / T-score (-3.0) / Z-score (-0.8) Right Femur Total: g/cm2 (0.581) / T-score (-3.0) / Z-score (-1.0) Right Femoral Neck: g/cm2 (0.461) / T-score (-3.5) / Z-score (-1.3) The T-Scores on the most recent prior examination were: Lumbar Spine (L1-L4): There has been improvement of bone density since the previous examination. Left Femur Total: which represents a worsening of 1%. Right Femur Total: which represents a worsening of 3.6%. BD/Dexa Bone Density Study IMPRESSION: The patient is considered osteoporotic as outlined below according to World Jason Organization (WHO) criteria with a high fracture risk. There has been worsening of bone density since the previous examination. Reference Information: The T-score is the number of standard deviations above or below the standard which is normal for young adults at their peak bone mineral density. The World Health Organization (WHO) interprets the T-scores as follows: Above -1 Normal bone density Between -1 and -2.5 Osteopenia Equal to / or below -2.5 Osteoporosis As a practical clinical guideline, osteopenia may be graded as follows: Mild -1 through -1.5 Moderate -1.6 through -2.0 Severe -2.1 through -2.4 The Z-score is the number of standard deviations above or below age-matched controls. A Z-score of less than -1.5 would be considered abnormal. References: 1. NIH Osteoporosis and Related Bone Diseases www osteo.org 2. International Society for Clinical Densitometry www iscd.org 3. National Osteoporosis Foundation www nof.org Electronically Signed: Lawrence Barrios MD at 13:26 EDT ,
== END | disposition home or self-care (01) ==
LOC: OPBD 08:42
PROVIDERS: PCP Registered Nurse; Visit Provider Family Medicine
DX: M81.0 Age-related osteoporosis without current pathological fracture (principal); Z78.0 Asymptomatic menopausal state
CPT/HCPCS: 77080

== ENCOUNTER → 2022-08-05 | Outpatient (CLI) | payer MEDICARE, MEDICAID, SELFPAY ==
[2022-08-05 11:46] LABS: Absolute Neutrophil Count 4.2 X10^3/uL (2.0-7.7); Basophil# 0.04 X10^3/uL; Basophil% 0.6 % (0-1); Eosinophil# 0.09 X10^3/uL; Eosinophils% 1.4 % (0-5); Hematocrit 39.7 % (37-47); Hemoglobin 12.7 g/dL (12.0-15.0); Lymphocyte % 23.8 % (19-41); Mean Corpuscular Hgb 29.7 pg (27.0-32.0); Mean Platelet Vol. 9.9 fl (6.2-12.0); Monocyte% 7.9 % (0-10); NRBC Flagged by Analyzer 0 % (0-5); Neutrophil # 4.17 X10^3/uL (2.7-7.7); Neutrophil % 66.1 % (47-70); Platelet Count 325 K/mm3 (150-450); RBC Distribution Width CV 13.2 % (11.6-14.6); RBC Distribution Width SD 44.7 fl (35.1-43.9); Red Blood Count 4.27 M/mm3 (4.2-5.4); White Blood Count 6.3 K/mm3 (4.4-11.0)
[2022-08-05 12:22] LABS: Anion Gap 6 (5-15); BUN 18 mg/dL (7-18); BUN/Creat Ratio 20.8 RATIO (10-20); Calcium,Total 9.4 mg/dL (8.5-10.1); Chloride 105 mmol/L (98-107); Creatinine, Serum 0.86 mg/dL (0.55-1.02); EST Glomerular Filtration Rate 67 mL/min (>60); Est Glom Filt Rate - Afr Amer 81 mL/min (>60); Ferritin 17 ng/mL (8-252); Glucose 88 mg/dL (74-106); Iron 56 ug/dL (50-170); Iron Binding Capacity,Total 382 ug/dL (250-450); PERCENT IRON SATURATION 14.7 % (15.0-55.0); Potassium 4.5 mmol/L (3.5-5.1); Sodium Level 138 mmol/L (136-145)
[2022-08-05 13:01] LABS: Vitamin B12 > 2000 pg/mL (211-911)
[2022-08-05 13:14] LABS: Hemoglobin A1c 5.7 % (3.8-5.6)
== END | disposition home or self-care (01) ==
LOC: MFPLAB 10:23
PROVIDERS: PCP Family Medicine; Visit Provider Family Medicine
DX: E53.8 Deficiency of other specified B group vitamins (principal); N18.30 Chronic kidney disease, stage 3 unspecified; R73.01 Impaired fasting glucose; D64.9 Anemia, unspecified
CPT/HCPCS: 36415; 80048; 82607; 82728; 83036; 83540; 83550; 85025

== ENCOUNTER → 2023-08-18 | Outpatient (CLI) | payer MEDICARE, MEDICAID, SELFPAY ==
[2023-08-18 12:39] LABS: ALB/GLOB Ratio 1.1 RATIO (0.9-2.4); AST(SGOT) 28 U/L (15-37); Alanine Aminotransfer ALT/SGPT 28 U/L (13-56); Albumin, Serum 3.9 g/dL (3.2-5.0); Alkaline Phosphatase 80 U/L (45-117); Anion Gap 4 (5-15); BUN 19 mg/dL (7-18); BUN/Creat Ratio 20.8 RATIO (10-20); Calcium,Total 9.4 mg/dL (8.5-10.1); Chloride 108 mmol/L (98-107); Cholesterol 157 mg/dL (200); Creatinine, Serum 0.91 mg/dL (0.55-1.02); EST Glomerular Filtration Rate 63 mL/min (>60); Est Glom Filt Rate - Afr Amer 76 mL/min (>60); Globulin 3.7 g/dL (2.2-4.2); Glucose 104 mg/dL (74-106); High Density Lipoprotein 84 mg/dL; Potassium 3.9 mmol/L (3.5-5.1); Protein, Total 7.6 g/dL (6.4-8.2); Sodium Level 139 mmol/L (136-145); Triglycerides 56 mg/dL; Very Low Density Lipoprotein 11 mg/dL (5-40)
[2023-08-18 12:51] LABS: Vitamin B12 > 2000 pg/mL (211-911); Vitamin D,25 Hydroxy 72.2 ng/mL
[2023-08-18 13:23] LABS: Hemoglobin A1c 5.8 % (3.8-5.6)
== END | disposition home or self-care (01) ==
PROVIDERS: PCP Family Medicine; Referring Provider Family Medicine; Visit Provider Family Medicine
DX: E78.5 Hyperlipidemia, unspecified (principal); E53.8 Deficiency of other specified B group vitamins; R73.01 Impaired fasting glucose; Q78.2 Osteopetrosis
CPT/HCPCS: 36415; 80053; 80061; 82306; 82607; 83036

== ENCOUNTER → 2025-01-03 | Outpatient (CLI) | payer MEDICARE, MEDICAID, SELFPAY ==
[2025-01-03 10:06] LABS: Absolute Lymphocyte Count 1.49 X10^3/uL (0.83-4.51); Absolute Neutrophil Count 3.7 X10^3/uL (2.0-7.7); Basophil# 0.05 X10^3/uL; Basophil% 0.8 % (0-1); Eosinophil# 0.13 X10^3/uL; Eosinophils% 2.1 % (0-5); Hematocrit 35.2 % (37-47); Hemoglobin 10.9 g/dL (12.0-15.0); Lymphocyte # 1.49 X10^3/ul (0.83-4.51); Lymphocyte % 24.5 % (19-41); Mean Corpuscular Hgb 26.7 pg (27.0-32.0); Mean Corpuscular Volume 86.3 fL (81-99); Mean Platelet Vol. 10.1 fl (6.2-12.0); Monocyte# 0.68 X10^3/uL; Monocyte% 11.2 % (0-10); NRBC Flagged by Analyzer 0 % (0-5); Neutrophil # 3.71 X10^3/uL (2.7-7.7); Neutrophil % 61.1 % (47-70); Platelet Count 360 K/mm3 (150-450); RBC Distribution Width CV 16.6 % (11.6-14.6); RBC Distribution Width SD 51.8 fl (35.1-43.9); Red Blood Count 4.08 M/mm3 (4.2-5.4); White Blood Count 6.1 K/mm3 (4.4-11.0)
[2025-01-03 11:05] LABS: Hemoglobin A1c 6.1 % (<=5.6)
[2025-01-03 15:00] LABS: ALB/GLOB Ratio 1.5 RATIO (0.9-2.4); AST(SGOT) 32 U/L (<=31); Alanine Aminotransfer ALT/SGPT 22 U/L (<=34); Albumin, Serum 4.2 g/dL (3.4-4.8); Alkaline Phosphatase 66 U/L (35-104); Anion Gap 11 (5-15); BUN 22 mg/dL (4-19); BUN/Creat Ratio 21.5 RATIO (10-20); Calcium,Total 9.2 mg/dL (7.6-11.0); Carbon Dioxide 22.9 mmol/L (21.0-32.0); Chloride 105 mmol/L (98-108); Cholesterol 181 mg/dL (<=200); EST Glomerular Filtration Rate 57 (>60); Globulin 2.7 g/dL (2.2-4.2); Glucose 111 mg/dL (70-99); High Density Lipoprotein 83 mg/dL; Low Density Lipoprotein Calc. 88 mg/dL; Potassium 4.2 mmol/L (3.3-5.1); Protein, Total 6.9 g/dL (5.9-8.4); Sodium Level 139 mmol/L (133-145); Triglycerides 51 mg/dL; Very Low Density Lipoprotein 10 mg/dL (5-40); Vitamin B12 1751 pg/mL (180-914); Vitamin D,25 Hydroxy 80.9 ng/mL (30-100); cholesterol:hdl ratio screen 2.17
== END | disposition home or self-care (01) ==
LOC: MFPLAB 08:14
PROVIDERS: PCP Family Medicine; Referring Provider Family Medicine; Visit Provider Family Medicine
DX: E78.5 Hyperlipidemia, unspecified (principal); I10 Essential (primary) hypertension; M81.0 Age-related osteoporosis without current pathological fracture; R73.03 Prediabetes
CPT/HCPCS: 36415; 80053; 80061; 82306; 82607; 83036; 85025